=== PATIENT | female | born 1980 | race Caucasian/White ===

== ENCOUNTER 2017-02-13 15:55 | Emergency (ER) | payer OTHER ==
[~2017-02-13] VITALS: Wt 136.1 kg
[~2017-02-13 15:55] MED LIST: AMOXICILLIN500 MG PO; ANTIVERT/2525 MG PO; ANTIVERT25 MG PO; CIPRO250 MG PO; CORTISPORIN SUS10 ML OT; CYMBALTA30 MG PO; DIABETA5 MG PO; Fioricet 325 MG1 TAB PO; GLYBURIDE2.5 MG PO; GLYBURIDE5 MG PO; HUMALOG100 UNIT/2 SQ; HUMULIN R100 U/ML SC; HYDROCODONE BIT1 T11 PO; KEFLEX500 MG PO; LEVEMIR10 ML SC; LEVEMIR10 ML SQ; LEVOFLOXACIN500 MG PO; METFORMIN HCL500 MG PO; METFORMIN500 MG PO; MOTRIN800 MG PO; NEURONTIN300 MG PO; NORCO 10-325 T1 EACH PO; NOVOLOG1 UNIT/0.0; PERCOCET 325 MG1 TA2 PO; PERCOCET 325 MG1 TA5 PO; PHENERGAN25 M1 PO; PRENATAL1 TA3 PO; TRAMADOL HCL50 MG PO; TRAMADOL50 MG PO; VICODIN 5/500 505 MG PO; VICODIN 500 MG-1 TAB PO; VICODIN ES 7501 TAB PO; ZOFRAN ODT4 MG PO; ZOFRAN ODT4 MG SL; ZOFRAN4 MG PO; ZOLOFT25 MG PO; [UNRECOGNIZED DRUG - SUPPLY] SC
[2017-02-13] MEDS ORDERED: AMOXICILLIN500 M2 PO (16:25)
== END 2017-02-13 16:31 | disposition home or self-care (01) ==
LOC: ED 15:55
DX: H66.91 Otitis media, unspecified, right ear (principal); Z79.4 Long term (current) use of insulin; Z90.49 Acquired absence of other specified parts of digestive tract

== ENCOUNTER 2017-04-30 19:33 | Inpatient (IN) | payer OTHER ==
[~2017-04-30] VITALS: Ht 167.6 cm; Wt 135.6 kg
[~2017-04-30 19:33] MED LIST changes: +AMOXICILLIN500 M2 PO
[2017-04-30 19:46] VITALS: BP 144/77
[2017-04-30 20:31] LABS: BASO # 0.1 10*3/uL (0.0-0.1); BASO % 0.3 % (0.0-1.0); EOS # 0.1 10*3/uL (0.0-0.4); EOS % 0.5 % (1.0-4.0); HEMATOCRIT 41.3 % (37.0-47.0); HEMOGLOBIN 13.8 g/dl (12.0-16.0); LYMPH # 2.8 10*3/uL (1.3-4.4); LYMPH % 17.3 % (27.0-41.0); MEAN CELL VOLUME 80.5 fl (81.0-99.0); MEAN CORPUSCULAR HGB 26.9 pg (27.0-31.0); MEAN CORPUSCULAR HGB CONC 33.4 g/dl (33.0-37.0); MEAN PLATELET VOLUME 9.9 fl (9.6-12.3); MONO # 1.5 10*3/uL (0.1-1.0); MONO % 9.2 % (3.0-9.0); NEUT # 11.5 10*3/uL (2.3-7.9); NEUT % 71.6 % (47.0-73.0); PLATELET COUNT AUTOMATED 383 10*3/uL (130-400); RED BLOOD COUNT 5.13 10*6/uL (4.10-5.10); RED CELL DISTRI WIDTH 12.8 % (0-14.5); WHITE BLOOD COUNT 16.1 10*3/uL (4.8-10.8)
[2017-04-30 20:45] LABS: BILIRUBIN NEGATIVE (NEGATIVE); BLOOD NEGATIVE (NEGATIVE); CLARITY CLEAR (CLEAR); COLOR YELLOW (YELLOW); GLUCOSE 3+ (NEGATIVE); KETONE 1+ (NEGATIVE); LEUKO ESTERASE NEGATIVE (NEGATIVE); NITRITE NEGATIVE (NEGATIVE); PH 5.5 (5.0-9.0); SPECIFIC GRAVITY <= 1.005 (1.005-1.030)
[2017-04-30 20:47] LABS: ALBUMIN 2.8 gm/dl (3.1-4.5); ALKALINE PHOSPHATASE 143 U/L (45-117); BUN 10 mg/dl (7-24); CHLORIDE 94 mmol/L (98-107); CREATININE 0.85 mg/dL (0.55-1.02); POTASSIUM 3.9 mmol/L (3.5-5.1); SGOT/AST 14 IU/L (3-35); SGPT/ALT 26 U/L (12-78); SODIUM 132 mmol/L (136-145); TOTAL PROTEIN 8.1 gm/dL (6.4-8.2)
[2017-04-30 20:53] LABS: BACTERIA TRACE; YEAST 1+
[2017-04-30 22:06] VITALS: BP 138/83
--- NOTE | 2017-04-30 23:31 | NUR ---
RIGHT EAR IRRIGATED. PATIENT TOLERATED WELL
[2017-05-01] VITALS (7 sets, daily range): BP systolic 117–148; BP diastolic 68–91
--- NOTE | 2017-05-01 00:45 | NUR ---
A 36, admitted to 5E, under the services of DILAN Carrillo DO with a diagnosis of NAUSEA, VOMITING, DIARRHEA, SOB AND BACK PAIN. Chief complaint is MULTIPLE COMPLAINTS. Patient arrived via bed from ER. Monitor applied. Initial assessment completed. Vital signs taken and recorded. DILAN CARRILLO DO notified of admission to the unit. Orders received. See assessment for past medical history, medications and allergies. Patient and/or family oriented to unit. visitation policy reviewed. Clothing/patient valuable form completed. NAUN PALACIO
--- NOTE | 2017-05-01 01:03 | NUR ---
DR. JUAREZ NOTIFIED OF PATIENT BEING ADMITTED TO THE FLOOR FOR ORDERS AND UNABLE TO VERIFY PATIENT'S MEDICATIONS DUE TO PATIENT NOT SURE WHICH MEDICATIONS SHE IS TAKING AT THIS TIME. WILL HAVE AM NURSE CALL [facility] TO VERIFY MEDICATIONS.
--- NOTE | 2017-05-01 03:51 | NUR ---
PATIENT MEDICATED WITH NORCO AT O[facility] FOR COMPLAINTS OF LEG PAIN. WILL MONITOR FOR EFFECTIVENESS. CALL LIGHT IN REACH.
--- NOTE | 2017-05-01 08:30 | NUR ---
[employer] Teacher in to talk to patient. Patient states lives at HOME with HER . There are 3 steps in the home. Physician: SIMONE [facility] Home health services: NONE Patient's level of ADLs: INDEPENDENT Patient has working utilities: YES DME: NONE Follow-up physician's appointment after d/c: WILL BE MADE PRIOR TO DC Does patient want to access PORTAL?: Discharge plan HOME. DARLIN WARD
--- NOTE | 2017-05-01 17:13 | NUR ---
PATIENT MEDICATED WITH PO NORCO FOR PAIN 7/10 IN HER RIGHT LEG/GROIN
[2017-05-01] MEDS ORDERED: ZOLOFT100 MG PO (17:56)
[2017-05-01] MEDS ORDERED: VISTARIL50 MG PO (17:56)
[2017-05-01] MEDS ORDERED: ZESTRIL2.5 MG PO (17:57)
[2017-05-01] MEDS ORDERED: LANTUS SOL100 UNIT/1 SQ (17:58)
[2017-05-01] MEDS ORDERED: PRAVACHOL40 MG PO (17:59)
[2017-05-01] MEDS ORDERED: HUMALOG100 UNIT/1 SQ ×2 (17:59→18:23)
--- NOTE | 2017-05-01 18:02 | NUR ---
MED[facility] VERIFIED WITH [facility]
--- NOTE | 2017-05-01 18:13 | NUR ---
PATIENT STATES MEDICATION EFFECTIVE
[2017-05-02] VITALS: BP 113/75
--- NOTE | 2017-05-02 04:58 | NUR ---
PATIENT RESTING IN BED WITH EYES CLOSED. AROUSES EASILY TO VERBAL STIMULI. NO SIGNS OR SYMPTOMS OF DISTRESS NOTED. PATIENT STATED SHE FEELS MUCH BETTER TODAY THAN SHE DID LAS NIGHT. WILL CONTINUE TO MONITOR. CALL LIGHT IN REACH.
[2017-05-02 06:58] LABS: ACT PARTIAL THROMBO TIME 28.8 SECONDS (20.8-31.5); HEMATOCRIT 33.9 % (37.0-47.0); HEMOGLOBIN 11.2 g/dl (12.0-16.0); MEAN CELL VOLUME 82.1 fl (81.0-99.0); MEAN CORPUSCULAR HGB 27.1 pg (27.0-31.0); PLATELET COUNT AUTOMATED 318 10*3/uL (130-400); RED BLOOD COUNT 4.13 10*6/uL (4.10-5.10); WHITE BLOOD COUNT 21.7 10*3/uL (4.8-10.8)
[2017-05-02 07:14] LABS: BUN 6 mg/dl (7-24); CHLORIDE 100 mmol/L (98-107); CHOLESTEROL 171 mg/dL (<200); CREATININE 0.62 mg/dL (0.55-1.02); HDL CHOLESTEROL 34 mg/dl (40-60); LDL CHOLESTEROL 109 mg/dL (9-159); POTASSIUM 3.2 mmol/L (3.5-5.1); SODIUM 134 mmol/L (136-145); TRIGLYCERIDES 142 mg/dl (<150); VLDL CHOLESTEROL 28 mg/dL (6-40)
[2017-05-02 07:20] LABS: THYROID STIM HORMONE (HS) 0.969 uIU/ml (0.358-4.75)
[2017-05-02 07:24] LABS: PLATELET SUFFICIENCY NORMAL (NORMAL); TOTAL CELLS COUNTED 100 #CELLS
--- NOTE | 2017-05-02 07:55 | NUR ---
PATIENT COMPLAINING OF RIGHT LEG PAIN RATING A 7/10. NORCO 5/325 GIVEN PER PATIENT REQUEST. PATIENT VOICES NO OTHER COMPLAINTS AT THIS TIME. BED IS IN LOW POSITION. CALL LIGHT WITHIN REACH.
[2017-05-02 08:00] VITALS: BP 152/92
--- NOTE | 2017-05-02 09:56 | NUR ---
Shift chart check completed.
--- NOTE | 2017-05-02 15:41 | NUR ---
ZOFRAN 4MG IV GIVEN FOR NAUSEA AND VOMITING.
[2017-05-02 16:00] VITALS: BP 177/89
--- NOTE | 2017-05-02 16:15 | NUR ---
ZOFRAN EFFECTIVE FOR NAUSEA AND VOMITING PER PATIENT.
[2017-05-03] VITALS: BP 134/83
[2017-05-03 08:00] VITALS: BP 140/72
--- NOTE | 2017-05-03 08:00 | NUR ---
RESTING QUIETLY IN BED, NO DISTRESS NOTED. IV SITE LEAKING. DC'D AND RESTARTED. SEE SHIFT ASSESSMENT.
[2017-05-03 09:02] LABS: HEMATOCRIT 34.6 % (37.0-47.0); HEMOGLOBIN 11.3 g/dl (12.0-16.0); MEAN CELL VOLUME 82.6 fl (81.0-99.0); MEAN CORPUSCULAR HGB CONC 32.7 g/dl (33.0-37.0); MEAN PLATELET VOLUME 9.7 fl (9.6-12.3); PLATELET COUNT AUTOMATED 373 10*3/uL (130-400); RED BLOOD COUNT 4.19 10*6/uL (4.10-5.10); WHITE BLOOD COUNT 18.7 10*3/uL (4.8-10.8)
[2017-05-03 09:23] LABS: BASOPHILS 1 % (0-1); PLATELET SUFFICIENCY NORMAL (NORMAL); TOTAL CELLS COUNTED 100 #CELLS
[2017-05-03 09:25] LABS: ALKALINE PHOSPHATASE 141 U/L (45-117); BUN 5 mg/dl (7-24); CHLORIDE 103 mmol/L (98-107); CREATININE 0.88 mg/dL (0.55-1.02); POTASSIUM 3.3 mmol/L (3.5-5.1); SGOT/AST 32 IU/L (3-35); SGPT/ALT 50 U/L (12-78); SODIUM 139 mmol/L (136-145); TOTAL PROTEIN 6.7 gm/dL (6.4-8.2)
--- NOTE | 2017-05-03 12:56 | NUR ---
PT HAD EMESIS OF CLEAR YELLOW FLUID. MEDICATED ZOFRAN ORDERED.
--- NOTE | 2017-05-03 14:00 | NUR ---
PT STATES ZOFRAN EFFECTIVE.
[2017-05-03 16:00] VITALS: BP 120/78
[2017-05-04] VITALS: BP 136/86
[2017-05-04 06:28] LABS: HEMATOCRIT 32.9 % (37.0-47.0); HEMOGLOBIN 10.7 g/dl (12.0-16.0); MEAN CELL VOLUME 82.9 fl (81.0-99.0); MEAN CORPUSCULAR HGB CONC 32.5 g/dl (33.0-37.0); MEAN PLATELET VOLUME 9.7 fl (9.6-12.3); PLATELET COUNT AUTOMATED 398 10*3/uL (130-400); RED BLOOD COUNT 3.97 10*6/uL (4.10-5.10); WHITE BLOOD COUNT 15.8 10*3/uL (4.8-10.8)
[2017-05-04 06:59] LABS: ALBUMIN 1.9 gm/dl (3.1-4.5); BUN 5 mg/dl (7-24); CHLORIDE 105 mmol/L (98-107); CREATININE 0.91 mg/dL (0.55-1.02); POTASSIUM 3.5 mmol/L (3.5-5.1); SGOT/AST 16 IU/L (3-35); SGPT/ALT 39 U/L (12-78); SODIUM 140 mmol/L (136-145)
[2017-05-04 07:00] LABS: ALKALINE PHOSPHATASE 123 U/L (45-117); TOTAL CELLS COUNTED 100 #CELLS; TOTAL PROTEIN 6.5 gm/dL (6.4-8.2)
[2017-05-04 07:01] LABS: PLATELET SUFFICIENCY NORMAL (NORMAL); POLYCHROMASIA SLIGHT
[2017-05-04 08:00] VITALS: BP 120/90
--- NOTE | 2017-05-04 10:00 | NUR ---
AM MEDS TAKEN.
[2017-05-04] MEDS ORDERED: DOXYCYCLINE100 MG PO (10:55)
[2017-05-04] MEDS ORDERED: SEPTDS PO (10:55)
[2017-05-04] MEDS ORDERED: ZOFRAN4 MG PO (10:56)
--- NOTE | 2017-05-04 12:53 | NUR ---
HEP LOCK REMOVED FOR DISCHARGE. Discharge instructions reviewed with patient/family. Patient receptive and verbalizes understanding. Follow-up care arranged. Written instructions given to patient/family. VIKA SILVA
== END 2017-05-04 12:53 | disposition home or self-care (01) | DRG 872 ==
LOC: ED 19:33 → EDHOLD 22:07 → 5E 22:07
PROVIDERS: Family Medicine Adult Medicine; Internal Medicine; Physician Assistant; ADMIT Emergency Medicine
DX: A41.9 Sepsis, unspecified organism (principal); E44.0 Moderate protein-calorie malnutrition; E11.65 Type 2 diabetes mellitus with hyperglycemia; E87.1 Hypo-osmolality and hyponatremia; L03.115 Cellulitis of right lower limb; L02.415 Cutaneous abscess of right lower limb; Z68.42 Body mass index [BMI] 45.0-49.9, adult; E78.5 Hyperlipidemia, unspecified; G43.909 Migraine, unspecified, not intractable, without status migrainosus; I10 Essential (primary) hypertension; E66.01 Morbid (severe) obesity due to excess calories; I80.9 Phlebitis and thrombophlebitis of unspecified site; K52.9 Noninfective gastroenteritis and colitis, unspecified; M54.9 Dorsalgia, unspecified; Z79.4 Long term (current) use of insulin; Z87.442 Personal history of urinary calculi; Z90.49 Acquired absence of other specified parts of digestive tract; Z83.3 Family history of diabetes mellitus; Z88.8 Allergy status to other drugs, medicaments and biological substances; Z91.14 Patient's other noncompliance with medication regimen; Z82.49 Family history of ischemic heart disease and other diseases of the circulatory system; Z79.899 Other long term (current) drug therapy

== ENCOUNTER 2017-05-07 12:44 | Inpatient (IN) | payer OTHER ==
[2017-05-07] VITALS (7 sets, daily range): BP systolic 150–181; BP diastolic 70–96
[~2017-05-07] VITALS: Ht 165.1 cm; Wt 138.4 kg
[~2017-05-07 12:44] MED LIST changes: +DOXYCYCLINE100 MG PO; +HUMALOG100 UNIT/1 SQ; +LANTUS SOL100 UNIT/1 SQ; +PRAVACHOL40 MG PO; +SEPTDS PO; +VISTARIL50 MG PO; +ZESTRIL2.5 MG PO; +ZOLOFT100 MG PO
[2017-05-07 13:31] LABS: HEMATOCRIT 37.3 % (37.0-47.0); HEMOGLOBIN 12.3 g/dl (12.0-16.0); MEAN CELL VOLUME 81.3 fl (81.0-99.0); MEAN CORPUSCULAR HGB 26.8 pg (27.0-31.0); MEAN PLATELET VOLUME 8.9 fl (9.6-12.3); PLATELET COUNT AUTOMATED 478 10*3/uL (130-400); RED BLOOD COUNT 4.59 10*6/uL (4.10-5.10); WHITE BLOOD COUNT 19.4 10*3/uL (4.8-10.8)
[2017-05-07 13:46] LABS: ALBUMIN 2.6 gm/dl (3.1-4.5); CREATININE 1.28 mg/dL (0.55-1.02); MAGNESIUM 1.7 mg/dL (1.5-2.1); POTASSIUM 3.5 mmol/L (3.5-5.1); TOTAL PROTEIN 7.8 gm/dL (6.4-8.2)
[2017-05-07 13:48] LABS: BASOPHILS 1 % (0-1); PLATELET SUFFICIENCY HIGH (NORMAL); TOTAL CELLS COUNTED 100 #CELLS
[2017-05-07 14:14] LABS: BILIRUBIN NEGATIVE (NEGATIVE); BLOOD NEGATIVE (NEGATIVE); CLARITY CLEAR (CLEAR); COLOR YELLOW (YELLOW); GLUCOSE NEGATIVE (NEGATIVE); KETONE 1+ (NEGATIVE); LEUKO ESTERASE NEGATIVE (NEGATIVE); NITRITE NEGATIVE (NEGATIVE); PH 7.5 (5.0-9.0); SPECIFIC GRAVITY <= 1.005 (1.005-1.030)
[2017-05-07 14:21] LABS: BACTERIA TRACE; RBC 0-2 rbc/hpf (0-2); WBC 0-2 wbc/hpf (0-5); YEAST 1+
--- NOTE | 2017-05-07 14:45 | NUR ---
A 36, admitted to , under the services of JACQUELINE Schreiber DO with a diagnosis of ACUTE RENAL INSUFFIENCY, HYPERGLYCEMIA, INTRACTABLE NV. Chief complaint is NV. Patient arrived via bed from ER. Monitor applied. Initial assessment completed. Vital signs taken and recorded. JACQUELINE SCHREIBER DO notified of admission to the unit. Orders received. See assessment for past medical history, medications and allergies. Patient and/or family oriented to unit. [facility] visitation policy reviewed. Clothing/patient valuable form completed. URI BLAKE
--- NOTE | 2017-05-07 14:52 | NUR ---
[facility] CALL[facility] FOR MED REC. WILL FAX TO 5E.
--- NOTE | 2017-05-07 15:03 | NUR ---
MUKUND WINSLOW TOOK THE PATIENT UP STAIRS TO ROOM. JOSE OMALLEY
[2017-05-07] MEDS ORDERED: VITAMIN D50000 UNIT PO (15:20)
[2017-05-08] VITALS: BP 170/94
--- NOTE | 2017-05-08 00:05 | NUR ---
NOTIFIED DR. SHAIKH OF PATIENT'S BLOOD PRESSURE OF 170/94. NO NEW ORDERS.
--- NOTE | 2017-05-08 04:37 | NUR ---
PATIENT RESTING IN BED WITH EYES CLOSED. AROUSES EASILY TO VERBAL STIMULI. DENIES COMPLAINTS OF PAIN OR DISCOMFORT. STATED SHE SLEPT WELL THROUGH THE NIGHT. WILL CONTINUE TO MONITOR. CALL LIGHT IN REACH.
[2017-05-08 07:56] LABS: BASO # 0.1 10*3/uL (0.0-0.1); BASO % 0.5 % (0.0-1.0); EOS # 0.2 10*3/uL (0.0-0.4); EOS % 1.2 % (1.0-4.0); HEMATOCRIT 34.3 % (37.0-47.0); LYMPH # 2.9 10*3/uL (1.3-4.4); LYMPH % 16.6 % (27.0-41.0); MEAN CELL VOLUME 82.9 fl (81.0-99.0); MEAN CORPUSCULAR HGB 26.6 pg (27.0-31.0); MEAN CORPUSCULAR HGB CONC 32.1 g/dl (33.0-37.0); MONO % 5.9 % (3.0-9.0); NEUT # 12.9 10*3/uL (2.3-7.9); NEUT % 74.8 % (47.0-73.0); PLATELET COUNT AUTOMATED 377 10*3/uL (130-400); RED BLOOD COUNT 4.14 10*6/uL (4.10-5.10); RED CELL DISTRI WIDTH 13.2 % (0-14.5); WHITE BLOOD COUNT 17.2 10*3/uL (4.8-10.8)
[2017-05-08 08:00] VITALS: BP 158/98
--- NOTE | 2017-05-08 08:00 | NUR ---
Manager Distribution Center in to talk to patient. Patient states lives at HOME with HER . There are 3 steps in the home. Physician: SIMONE [facility] Home health services: NONE Patient's level of ADLs: INDEPENDENT Patient has working utilities: YES DME: NONE Follow-up physician's appointment after d/c: WILL BE MAD EPRIOR TO DC Does patient want to access PORTAL?: Discharge plan HOME. DARLIN WARD
--- NOTE | 2017-05-08 08:28 | NUR ---
PATIENT HAD A LARGE YELLOW EMESIS OF 300CC. NO C/O ABDOMINAL PAIN. MEDICATED WITH PHENERGAN PER PRN ORDER. WILL CONTINUE TO MONITOR.
[2017-05-08 08:46] LABS: ALBUMIN 2.2 gm/dl (3.1-4.5); ALKALINE PHOSPHATASE 94 U/L (45-117); BUN 7 mg/dl (7-24); CHLORIDE 104 mmol/L (98-107); CREATININE 1.13 mg/dL (0.55-1.02); MAGNESIUM 1.7 mg/dL (1.5-2.1); POTASSIUM 3.4 mmol/L (3.5-5.1); SGOT/AST 27 IU/L (3-35); SGPT/ALT 44 U/L (12-78); SODIUM 139 mmol/L (136-145); TOTAL PROTEIN 6.5 gm/dL (6.4-8.2)
[2017-05-08 12:00] VITALS: BP 160/89
[2017-05-08 16:00] VITALS: BP 156/70
[2017-05-08 20:00] VITALS: BP 158/82
[2017-05-09] VITALS: BP 156/82
--- NOTE | 2017-05-09 01:20 | NUR ---
PATIENT RESTING IN BED WITH EYES CLOSED. AROUSES TO VERBAL STIMULI. NO SIGNS OR SYMPTOMS OF DISTRESS NOTED AT THIS TIME. PATIENT WAS HAVING DRY HEAVES EARLIER IN SHIFT. MEDICATED WITH ZOFRAN AT 0000. WILL CONTINUE TO MONITOR. CALL LIGHT IN REACH.
[2017-05-09 06:58] LABS: BASO # 0.1 10*3/uL (0.0-0.1); BASO % 0.6 % (0.0-1.0); EOS # 0.2 10*3/uL (0.0-0.4); EOS % 1.1 % (1.0-4.0); HEMATOCRIT 36.1 % (37.0-47.0); HEMOGLOBIN 11.7 g/dl (12.0-16.0); LYMPH # 2.7 10*3/uL (1.3-4.4); LYMPH % 16.8 % (27.0-41.0); MEAN CELL VOLUME 83.2 fl (81.0-99.0); MEAN CORPUSCULAR HGB CONC 32.4 g/dl (33.0-37.0); MEAN PLATELET VOLUME 8.8 fl (9.6-12.3); MONO # 0.9 10*3/uL (0.1-1.0); MONO % 5.9 % (3.0-9.0); NEUT # 11.7 10*3/uL (2.3-7.9); NEUT % 74.4 % (47.0-73.0); PLATELET COUNT AUTOMATED 394 10*3/uL (130-400); RED BLOOD COUNT 4.34 10*6/uL (4.10-5.10); RED CELL DISTRI WIDTH 12.9 % (0-14.5); WHITE BLOOD COUNT 15.7 10*3/uL (4.8-10.8)
[2017-05-09 07:29] LABS: ALBUMIN 2.5 gm/dl (3.1-4.5); BUN 8 mg/dl (7-24); CHLORIDE 102 mmol/L (98-107); CREATININE 1.18 mg/dL (0.55-1.02); PHOSPHOROUS 3.5 mg/dL (2.5-4.9); POTASSIUM 3.7 mmol/L (3.5-5.1); SGOT/AST 26 IU/L (3-35); SGPT/ALT 48 U/L (12-78); SODIUM 139 mmol/L (136-145)
[2017-05-09 07:30] LABS: ALKALINE PHOSPHATASE 107 U/L (45-117); MAGNESIUM 1.6 mg/dL (1.5-2.1)
[2017-05-09 08:00] VITALS: BP 182/97
--- NOTE | 2017-05-09 09:01 | NUR ---
PT MEDICATED WITH PHENERGAN FOR C/O NV. WILL MONITOR
[2017-05-09 10:00] VITALS: BP 166/98
--- NOTE | 2017-05-09 10:00 | NUR ---
PT STATES THAT PHENERGAN HELPED. WILL MONITOR
--- NOTE | 2017-05-09 10:06 | NUR ---
PT BP RECHECKED DR IVORY CALLED AND NOTIFIED
[2017-05-09 12:00] VITALS: BP 153/82
[2017-05-09 16:00] VITALS: BP 150/81
--- NOTE | 2017-05-09 16:54 | NUR ---
PT REQUESTED AND GIVEN ZOFRAN FOR C/O NAUSEA. WILL MONITOR
[2017-05-09 20:00] VITALS: BP 159/84
--- NOTE | 2017-05-09 20:15 | NUR ---
PATIENT RESTING QUIETLY IN BED. NO VOICED C/O AT THIS TIME. SHE IS PLEASANT/COOPERATIVE WITH CARE. RESPIRATIONS EASY/REG. CALL LIGHT IN REACH.
[2017-05-10] VITALS: BP 150/93
--- NOTE | 2017-05-10 00:50 | NUR ---
MEDICATED WITH ZOFRAN FOR C/O NAUSEA.
--- NOTE | 2017-05-10 02:00 | NUR ---
EARLIER ZOFRAN EFFECTIVE PER PATIENT
--- NOTE | 2017-05-10 04:16 | NUR ---
SLEEPING, NO SXS OF DISTRESS. RESPIRATIONS EASY/REG. CALL LIGHT IN REACH
[2017-05-10 06:07] LABS: BASO # 0.1 10*3/uL (0.0-0.1); BASO % 0.4 % (0.0-1.0); EOS # 0.2 10*3/uL (0.0-0.4); EOS % 1.4 % (1.0-4.0); HEMOGLOBIN 11.1 g/dl (12.0-16.0); LYMPH # 3.3 10*3/uL (1.3-4.4); LYMPH % 20.9 % (27.0-41.0); MEAN CELL VOLUME 80.6 fl (81.0-99.0); MEAN CORPUSCULAR HGB 26.3 pg (27.0-31.0); MEAN CORPUSCULAR HGB CONC 32.6 g/dl (33.0-37.0); MEAN PLATELET VOLUME 8.9 fl (9.6-12.3); MONO # 1.1 10*3/uL (0.1-1.0); MONO % 6.9 % (3.0-9.0); NEUT # 10.9 10*3/uL (2.3-7.9); NEUT % 69.4 % (47.0-73.0); PLATELET COUNT AUTOMATED 399 10*3/uL (130-400); RED BLOOD COUNT 4.22 10*6/uL (4.10-5.10); WHITE BLOOD COUNT 15.6 10*3/uL (4.8-10.8)
[2017-05-10 06:10] LABS: ALBUMIN 2.3 gm/dl (3.1-4.5); ALKALINE PHOSPHATASE 92 U/L (45-117); BUN 8 mg/dl (7-24); CHLORIDE 100 mmol/L (98-107); CREATININE 1.07 mg/dL (0.55-1.02); POTASSIUM 3.3 mmol/L (3.5-5.1); SGOT/AST 14 IU/L (3-35); SGPT/ALT 35 U/L (12-78); SODIUM 137 mmol/L (136-145); TOTAL PROTEIN 6.4 gm/dL (6.4-8.2)
[2017-05-10 08:00] VITALS: BP 138/73
--- NOTE | 2017-05-10 09:10 | NUR ---
PT C/O N/V. PT MEDICATED WITH IV ZOFRAN ORDERED / CALL LIGHT WITHIN REACH . WILL MONITOR
--- NOTE | 2017-05-10 10:30 | NUR ---
ZOFRAN EFFECTIVE PER PT. WILL CONT TO MONITOR
[2017-05-10] MEDS ORDERED: CIPRO500 MG PO (10:56)
[2017-05-10] MEDS ORDERED: FLAGYL500 MG PO (10:56)
[2017-05-10 12:00] VITALS: BP 140/72
--- NOTE | 2017-05-10 13:40 | NUR ---
Discharge instructions reviewed with patient/family. Patient receptive and verbalizes understanding. Follow-up care arranged. Written instructions given to patient/family. JOSE POTTS
--- NOTE | 2017-05-10 14:11 | NUR ---
DR IVORY STATES THAT PT CAN TAKE HER DOSE OF LISINOPRIL FROM HOME. PT MOM ( DEONDRE ) CALLED AND NOTIFIED
== END 2017-05-10 14:14 | disposition home or self-care (01) | DRG 871 ==
LOC: ED 12:44 → 5E 14:20 → EDHOLD 14:20 → 5E 14:27
PROVIDERS: Hospitalist; Nurse Practitioner Family; ADMIT Internal Medicine
DX: A41.9 Sepsis, unspecified organism (principal); N17.0 Acute kidney failure with tubular necrosis; E43 Unspecified severe protein-calorie malnutrition; K74.60 Unspecified cirrhosis of liver; E86.0 Dehydration; Z68.43 Body mass index [BMI] 50.0-59.9, adult; K76.0 Fatty (change of) liver, not elsewhere classified; K52.9 Noninfective gastroenteritis and colitis, unspecified; E66.01 Morbid (severe) obesity due to excess calories; I10 Essential (primary) hypertension; E78.5 Hyperlipidemia, unspecified; G43.909 Migraine, unspecified, not intractable, without status migrainosus; E11.65 Type 2 diabetes mellitus with hyperglycemia; E55.9 Vitamin D deficiency, unspecified; Z79.899 Other long term (current) drug therapy; Z90.49 Acquired absence of other specified parts of digestive tract; Z82.49 Family history of ischemic heart disease and other diseases of the circulatory system; Z83.3 Family history of diabetes mellitus; Z71.3 Dietary counseling and surveillance

== ENCOUNTER 2017-09-30 04:33 | Emergency (ER) | payer SELFPAY ==
[~2017-09-30] VITALS: Ht 172.7 cm; Wt 108.9 kg
[~2017-09-30 04:33] MED LIST changes: +CIPRO500 MG PO; +FLAGYL500 MG PO; +VITAMIN D50000 UNIT PO
[2017-09-30 04:51] LABS: BASO # 0.1 10*3/uL (0.0-0.1); BASO % 0.6 % (0.0-1.0); EOS # 0.2 10*3/uL (0.0-0.4); EOS % 1.1 % (1.0-4.0); HEMATOCRIT 41.6 % (37.0-47.0); LYMPH # 4.3 10*3/uL (1.3-4.4); LYMPH % 32.6 % (27.0-41.0); MEAN CELL VOLUME 79.8 fl (81.0-99.0); MEAN CORPUSCULAR HGB 26.9 pg (27.0-31.0); MEAN CORPUSCULAR HGB CONC 33.7 g/dl (33.0-37.0); MEAN PLATELET VOLUME 10.4 fl (9.6-12.3); MONO # 0.9 10*3/uL (0.1-1.0); MONO % 6.6 % (3.0-9.0); NEUT # 7.7 10*3/uL (2.3-7.9); NEUT % 58.6 % (47.0-73.0); PLATELET COUNT AUTOMATED 374 10*3/uL (130-400); RED BLOOD COUNT 5.21 10*6/uL (4.10-5.10); RED CELL DISTRI WIDTH 12.8 % (0-14.5); WHITE BLOOD COUNT 13.2 10*3/uL (4.8-10.8)
[2017-09-30 05:22] LABS: ACT PARTIAL THROMBO TIME 21.9 SECONDS (20.8-31.5); INTERNATIONAL NORM RATIO 0.9 (2.0-3.5)
[2017-09-30 05:29] LABS: ALBUMIN 3.3 gm/dl (3.1-4.5); ALKALINE PHOSPHATASE 124 U/L (45-117); BUN 15 mg/dl (7-24); CHLORIDE 95 mmol/L (98-107); CREATININE 0.96 mg/dL (0.55-1.02); SGOT/AST 14 IU/L (3-35); SGPT/ALT 21 U/L (12-78); SODIUM 132 mmol/L (136-145); TOTAL PROTEIN 7.6 gm/dL (6.4-8.2)
[2017-09-30 05:30] LABS: TROPONIN I < 0.015 ng/ml (<0.045)
== END 2017-09-30 06:12 | disposition home or self-care (01) ==
LOC: ED 04:33
PROVIDERS: Student in an Organized Health Care Education/Training Program
DX: R07.89 Other chest pain (principal); I10 Essential (primary) hypertension; E78.5 Hyperlipidemia, unspecified; G43.909 Migraine, unspecified, not intractable, without status migrainosus; E11.65 Type 2 diabetes mellitus with hyperglycemia; Z68.42 Body mass index [BMI] 45.0-49.9, adult; Z90.49 Acquired absence of other specified parts of digestive tract; Z98.890 Other specified postprocedural states; Z79.899 Other long term (current) drug therapy; Z79.4 Long term (current) use of insulin

== ENCOUNTER 2017-10-27 16:35 | Inpatient (IN) | payer SELFPAY ==
[~2017-10-27] VITALS: Ht 165.1 cm; Wt 131.3 kg
[2017-10-27 16:35] VITALS: BP 155/96
[2017-10-27 17:12] LABS: BILIRUBIN NEGATIVE (NEGATIVE); BLOOD NEGATIVE (NEGATIVE); CLARITY SL CLOUDY (CLEAR); COLOR YELLOW (YELLOW); GLUCOSE 3+ (NEGATIVE); KETONE NEGATIVE (NEGATIVE); LEUKO ESTERASE NEGATIVE (NEGATIVE); NITRITE NEGATIVE (NEGATIVE)
[2017-10-27 17:28] LABS: RBC 0-2 rbc/hpf (0-2)
[2017-10-27 17:29] LABS: BACTERIA 2+; EPITHELIAL CELLS 16-20
[2017-10-27 17:43] LABS: BASO % 0.4 % (0.0-1.0); EOS # 0.1 10*3/uL (0.0-0.4); EOS % 1.2 % (1.0-4.0); HEMATOCRIT 37.4 % (37.0-47.0); HEMOGLOBIN 12.3 g/dl (12.0-16.0); LYMPH # 2.7 10*3/uL (1.3-4.4); LYMPH % 26.1 % (27.0-41.0); MEAN CELL VOLUME 81.1 fl (81.0-99.0); MEAN CORPUSCULAR HGB 26.7 pg (27.0-31.0); MEAN CORPUSCULAR HGB CONC 32.9 g/dl (33.0-37.0); MEAN PLATELET VOLUME 9.8 fl (9.6-12.3); MONO # 0.9 10*3/uL (0.1-1.0); MONO % 8.6 % (3.0-9.0); NEUT # 6.5 10*3/uL (2.3-7.9); PLATELET COUNT AUTOMATED 353 10*3/uL (130-400); RED BLOOD COUNT 4.61 10*6/uL (4.10-5.10); RED CELL DISTRI WIDTH 12.8 % (0-14.5); WHITE BLOOD COUNT 10.3 10*3/uL (4.8-10.8)
[2017-10-27 17:45] VITALS: BP 160/91
[2017-10-27 17:58] LABS: ALKALINE PHOSPHATASE 109 U/L (45-117); BUN 14 mg/dl (7-24); CHLORIDE 96 mmol/L (98-107); CREATININE 1.09 mg/dL (0.55-1.02); SGOT/AST 15 IU/L (3-35); SGPT/ALT 21 U/L (12-78); SODIUM 133 mmol/L (136-145); TOTAL PROTEIN 7.5 gm/dL (6.4-8.2)
[2017-10-27 19:13] VITALS: BP 138/88
[2017-10-27 19:31] VITALS: BP 160/91
[2017-10-27] MEDS ORDERED: NEURONTIN300 MG PO (19:59)
[2017-10-27 20:11] LABS: BUN 14 mg/dl (7-24); CHLORIDE 101 mmol/L (98-107); CREATININE 0.98 mg/dL (0.55-1.02); POTASSIUM 3.6 mmol/L (3.5-5.1); SODIUM 138 mmol/L (136-145)
[2017-10-27 20:16] LABS: TROPONIN I < 0.015 ng/ml (<0.045)
[2017-10-27 21:01] LABS: ABG BASE EXCESS 0.7 mmol/L (-2.0-2.0); ABG HCO3 24.3 mmol/l (22-26); ABG O2 SATURATION 97.4 % (95-97); ARTERIAL BLOOD GAS PH 7.433 (7.35-7.45); ARTERIAL BLOOD GAS PO2 83.2 mmHg (80-90)
[2017-10-28] VITALS: BP 130/77
[2017-10-28 06:10] LABS: BASO % 0.4 % (0.0-1.0); EOS # 0.2 10*3/uL (0.0-0.4); EOS % 1.6 % (1.0-4.0); HEMATOCRIT 32.7 % (37.0-47.0); HEMOGLOBIN 10.6 g/dl (12.0-16.0); LYMPH # 3.5 10*3/uL (1.3-4.4); MEAN CELL VOLUME 82.2 fl (81.0-99.0); MEAN CORPUSCULAR HGB 26.6 pg (27.0-31.0); MEAN CORPUSCULAR HGB CONC 32.4 g/dl (33.0-37.0); MEAN PLATELET VOLUME 10.1 fl (9.6-12.3); MONO # 0.9 10*3/uL (0.1-1.0); MONO % 9.2 % (3.0-9.0); NEUT # 4.8 10*3/uL (2.3-7.9); NEUT % 51.3 % (47.0-73.0); PLATELET COUNT AUTOMATED 300 10*3/uL (130-400); RED BLOOD COUNT 3.98 10*6/uL (4.10-5.10); RED CELL DISTRI WIDTH 13.1 % (0-14.5); WHITE BLOOD COUNT 9.4 10*3/uL (4.8-10.8)
[2017-10-28 06:15] LABS: ALBUMIN 2.3 gm/dl (3.1-4.5); BUN 12 mg/dl (7-24); CHLORIDE 104 mmol/L (98-107); CHOLESTEROL 154 mg/dL (<200); CREATININE 0.75 mg/dL (0.55-1.02); PHOSPHOROUS 3.5 mg/dL (2.5-4.9); POTASSIUM 3.4 mmol/L (3.5-5.1); SGOT/AST 10 IU/L (3-35); SGPT/ALT 20 U/L (12-78); SODIUM 138 mmol/L (136-145); TOTAL PROTEIN 6.1 gm/dL (6.4-8.2); TRIGLYCERIDES 150 mg/dl (<150); VLDL CHOLESTEROL 30 mg/dL (6-40)
[2017-10-28 06:21] LABS: ALKALINE PHOSPHATASE 87 U/L (45-117); HDL CHOLESTEROL 34 mg/dl (40-60); LDL CHOLESTEROL 90 mg/dL (9-159)
[2017-10-28 06:29] LABS: ACT PARTIAL THROMBO TIME 25.9 SECONDS (20.8-31.5); INTERNATIONAL NORM RATIO 0.9 (2.0-3.5)
[2017-10-28 08:00] VITALS: BP 97/61
[2017-10-28 08:14] LABS: VITAMIN D, 25-HYDROXY 17.8 ng/mL (30-100)
[2017-10-28 11:55] VITALS: BP 103/68
[2017-10-28 16:00] VITALS: BP 101/62
[2017-10-28 20:00] VITALS: BP 129/75
[2017-10-29] VITALS: BP 109/84
[2017-10-29 06:15] LABS: BASO # 0.1 10*3/uL (0.0-0.1); BASO % 0.6 % (0.0-1.0); EOS # 0.2 10*3/uL (0.0-0.4); HEMATOCRIT 34.1 % (37.0-47.0); HEMOGLOBIN 11.1 g/dl (12.0-16.0); LYMPH # 3.8 10*3/uL (1.3-4.4); LYMPH % 36.2 % (27.0-41.0); MEAN CORPUSCULAR HGB 26.7 pg (27.0-31.0); MEAN CORPUSCULAR HGB CONC 32.6 g/dl (33.0-37.0); MONO # 0.7 10*3/uL (0.1-1.0); NEUT # 5.6 10*3/uL (2.3-7.9); NEUT % 53.6 % (47.0-73.0); PLATELET COUNT AUTOMATED 356 10*3/uL (130-400); RED BLOOD COUNT 4.16 10*6/uL (4.10-5.10); WHITE BLOOD COUNT 10.5 10*3/uL (4.8-10.8)
[2017-10-29 06:24] LABS: BUN 14 mg/dl (7-24); CHLORIDE 103 mmol/L (98-107); CREATININE 0.77 mg/dL (0.55-1.02); POTASSIUM 3.8 mmol/L (3.5-5.1); SODIUM 137 mmol/L (136-145)
[2017-10-29 08:00] VITALS: BP 130/84
[2017-10-29 12:00] VITALS: BP 140/78
[2017-10-29] MEDS ORDERED: LISINOPRIL5 MG PO (15:17)
[2017-10-29] MEDS ORDERED: SEPTDS PO (15:17)
[2017-10-29] MEDS ORDERED: CEPHALEXIN500 M1 PO (15:17)
[2017-10-29 16:00] VITALS: BP 133/74
== END 2017-10-29 16:30 | disposition home or self-care (01) | DRG 872 ==
LOC: ED 16:35 → 4E 18:26 → EDHOLD 18:26 → 4E 19:05
PROVIDERS: Internal Medicine; Obstetrics & Gynecology; Physician Assistant
DX: A41.9 Sepsis, unspecified organism (principal); E11.42 Type 2 diabetes mellitus with diabetic polyneuropathy; E87.2 Acidosis; E44.0 Moderate protein-calorie malnutrition; E87.8 Other disorders of electrolyte and fluid balance, not elsewhere classified; E11.65 Type 2 diabetes mellitus with hyperglycemia; L03.115 Cellulitis of right lower limb; Z68.42 Body mass index [BMI] 45.0-49.9, adult; E66.01 Morbid (severe) obesity due to excess calories; K74.60 Unspecified cirrhosis of liver; K76.0 Fatty (change of) liver, not elsewhere classified; E78.5 Hyperlipidemia, unspecified; E86.0 Dehydration; R65.20 Severe sepsis without septic shock; R81 Glycosuria; R82.71 Bacteriuria; G43.909 Migraine, unspecified, not intractable, without status migrainosus; I10 Essential (primary) hypertension; E55.9 Vitamin D deficiency, unspecified; F41.9 Anxiety disorder, unspecified; F32.9 Major depressive disorder, single episode, unspecified; Z79.4 Long term (current) use of insulin; Z79.899 Other long term (current) drug therapy; Z90.49 Acquired absence of other specified parts of digestive tract; Z82.49 Family history of ischemic heart disease and other diseases of the circulatory system; Z83.3 Family history of diabetes mellitus

== ENCOUNTER 2017-12-01 18:27 | Inpatient (IN) | payer SELFPAY ==
[~2017-12-01] VITALS: Ht 165.1 cm; Wt 136.2 kg
[~2017-12-01 18:27] MED LIST changes: +CEPHALEXIN500 M1 PO; +LISINOPRIL5 MG PO
[2017-12-01 18:47] VITALS: BP 140/82
[2017-12-01 19:00] VITALS: BP 140/82
[2017-12-01 19:47] LABS: HEMATOCRIT 36.9 % (37.0-47.0); HEMOGLOBIN 12.6 g/dl (12.0-16.0); MEAN CELL VOLUME 78.7 fl (81.0-99.0); MEAN CORPUSCULAR HGB 26.9 pg (27.0-31.0); MEAN CORPUSCULAR HGB CONC 34.1 g/dl (33.0-37.0); MEAN PLATELET VOLUME 9.8 fl (9.6-12.3); PLATELET COUNT AUTOMATED 355 10*3/uL (130-400); RED BLOOD COUNT 4.69 10*6/uL (4.10-5.10); RED CELL DISTRI WIDTH 13.1 % (0-14.5)
[2017-12-01 20:06] LABS: ALBUMIN 3.3 gm/dl (3.1-4.5); ALKALINE PHOSPHATASE 121 U/L (45-117); BUN 13 mg/dl (7-24); CHLORIDE 96 mmol/L (98-107); CREATININE 1.01 mg/dL (0.55-1.02); SGOT/AST 15 IU/L (3-35); SGPT/ALT 22 U/L (12-78); SODIUM 131 mmol/L (136-145); TOTAL PROTEIN 7.6 gm/dL (6.4-8.2)
[2017-12-01 20:07] LABS: BILIRUBIN NEGATIVE (NEGATIVE); BLOOD 1+ (NEGATIVE); CLARITY CLEAR (CLEAR); COLOR YELLOW (YELLOW); GLUCOSE 3+ (NEGATIVE); KETONE 1+ (NEGATIVE); LEUKO ESTERASE NEGATIVE (NEGATIVE); NITRITE NEGATIVE (NEGATIVE); PH 7.5 (5.0-9.0); SPECIFIC GRAVITY 1.015 (1.005-1.030)
[2017-12-01 20:10] LABS: MICROCYTOSIS SLIGHT; PLATELET SUFFICIENCY NORMAL (NORMAL); TOTAL CELLS COUNTED 100 #CELLS
[2017-12-01 20:28] LABS: BACTERIA TRACE; EPITHELIAL CELLS 45-50; WBC 0-2 wbc/hpf (0-5); YEAST TRACE
[2017-12-01 21:00] VITALS: BP 136/70
[2017-12-01 22:07] VITALS: BP 121/65
[2017-12-01 22:45] VITALS: BP 105/47
[2017-12-01 23:05] VITALS: BP 122/49
[2017-12-02 05:48] LABS: ALBUMIN 2.7 gm/dl (3.1-4.5); ALKALINE PHOSPHATASE 101 U/L (45-117); BUN 12 mg/dl (7-24); CHLORIDE 100 mmol/L (98-107); CREATININE 0.93 mg/dL (0.55-1.02); PHOSPHOROUS 2.5 mg/dL (2.5-4.9); POTASSIUM 3.8 mmol/L (3.5-5.1); SGOT/AST 11 IU/L (3-35); SGPT/ALT 22 U/L (12-78); SODIUM 135 mmol/L (136-145); TOTAL PROTEIN 6.6 gm/dL (6.4-8.2)
[2017-12-02 05:54] LABS: THYROID STIM HORMONE (HS) 0.985 uIU/ml (0.358-4.75)
[2017-12-02 05:55] LABS: HEMATOCRIT 35.1 % (37.0-47.0); HEMOGLOBIN 11.5 g/dl (12.0-16.0); MEAN CELL VOLUME 81.1 fl (81.0-99.0); MEAN CORPUSCULAR HGB 26.6 pg (27.0-31.0); MEAN CORPUSCULAR HGB CONC 32.8 g/dl (33.0-37.0); MEAN PLATELET VOLUME 10.5 fl (9.6-12.3); PLATELET COUNT AUTOMATED 354 10*3/uL (130-400); RED BLOOD COUNT 4.33 10*6/uL (4.10-5.10); RED CELL DISTRI WIDTH 13.1 % (0-14.5); WHITE BLOOD COUNT 30.6 10*3/uL (4.8-10.8)
[2017-12-02 07:02] LABS: PLATELET SUFFICIENCY NORMAL (NORMAL); TOTAL CELLS COUNTED 100 #CELLS
[2017-12-02 08:00] VITALS: BP 107/56
[2017-12-02 12:00] VITALS: BP 124/83
[2017-12-02 16:00] VITALS: BP 111/60
[2017-12-02 20:00] VITALS: BP 99/56
[2017-12-03] VITALS: BP 119/76
[2017-12-03 05:29] LABS: BUN 12 mg/dl (7-24); CHLORIDE 103 mmol/L (98-107); CREATININE 0.89 mg/dL (0.55-1.02); POTASSIUM 3.7 mmol/L (3.5-5.1); SODIUM 136 mmol/L (136-145)
[2017-12-03 06:34] LABS: BASO # 0.1 10*3/uL (0.0-0.1); BASO % 0.3 % (0.0-1.0); EOS # 0.2 10*3/uL (0.0-0.4); EOS % 1.1 % (1.0-4.0); HEMATOCRIT 33.2 % (37.0-47.0); HEMOGLOBIN 10.7 g/dl (12.0-16.0); LYMPH # 2.7 10*3/uL (1.3-4.4); LYMPH % 17.8 % (27.0-41.0); MEAN CORPUSCULAR HGB 26.8 pg (27.0-31.0); MEAN CORPUSCULAR HGB CONC 32.2 g/dl (33.0-37.0); MEAN PLATELET VOLUME 10.4 fl (9.6-12.3); MONO # 1.2 10*3/uL (0.1-1.0); MONO % 7.9 % (3.0-9.0); NEUT # 10.8 10*3/uL (2.3-7.9); NEUT % 72.2 % (47.0-73.0); PLATELET COUNT AUTOMATED 331 10*3/uL (130-400); RED CELL DISTRI WIDTH 13.2 % (0-14.5)
[2017-12-03 08:00] VITALS: BP 112/67
[2017-12-03] MEDS ORDERED: KEFLEX500 M1 PO (11:31)
[2017-12-03 12:00] VITALS: BP 121/81
== END 2017-12-03 13:10 | disposition home or self-care (01) | DRG 871 ==
LOC: ED 18:27 → 4E 22:10 → EDHOLD 22:10 → 4E 22:47
PROVIDERS: Family Medicine; Nurse Practitioner
DX: A41.9 Sepsis, unspecified organism (principal); E43 Unspecified severe protein-calorie malnutrition; E11.42 Type 2 diabetes mellitus with diabetic polyneuropathy; E87.1 Hypo-osmolality and hyponatremia; L03.115 Cellulitis of right lower limb; N39.0 Urinary tract infection, site not specified; Z68.42 Body mass index [BMI] 45.0-49.9, adult; E87.8 Other disorders of electrolyte and fluid balance, not elsewhere classified; E11.65 Type 2 diabetes mellitus with hyperglycemia; K76.0 Fatty (change of) liver, not elsewhere classified; M54.5 Low back pain; R82.71 Bacteriuria; R81 Glycosuria; G43.909 Migraine, unspecified, not intractable, without status migrainosus; I10 Essential (primary) hypertension; E78.5 Hyperlipidemia, unspecified; E66.01 Morbid (severe) obesity due to excess calories; F41.9 Anxiety disorder, unspecified; K74.60 Unspecified cirrhosis of liver; F32.9 Major depressive disorder, single episode, unspecified; Z90.49 Acquired absence of other specified parts of digestive tract; Z79.4 Long term (current) use of insulin; Z79.899 Other long term (current) drug therapy; Z82.49 Family history of ischemic heart disease and other diseases of the circulatory system; Z83.3 Family history of diabetes mellitus

== ENCOUNTER 2018-03-30 22:51 | Emergency (ER) | payer SELFPAY ==
[~2018-03-30] VITALS: Ht 165.1 cm; Wt 131.5 kg
[~2018-03-30 22:51] MED LIST changes: +DOXYCYCLINE100 M3 PO; +Humalog SQ; +KEFLEX500 M1 PO; +VITAMIN D-32000 UNIT PO; +ZYVOX600 MG PO
[2018-03-30 23:36] LABS: BILIRUBIN NEGATIVE (NEGATIVE); BLOOD NEGATIVE (NEGATIVE); CLARITY SL CLOUDY (CLEAR); COLOR YELLOW (YELLOW); GLUCOSE NEGATIVE (NEGATIVE); KETONE TRACE (NEGATIVE); LEUKO ESTERASE TRACE (NEGATIVE); NITRITE NEGATIVE (NEGATIVE); SPECIFIC GRAVITY <= 1.005 (1.005-1.030); UROBILINOGEN 0.2 E.U./dl (0.2-1.0)
[2018-03-30 23:47] LABS: EPITHELIAL CELLS 40-45
[2018-03-31] MEDS ORDERED: Motrin,Rufen800 MG PO (00:19)
[2018-03-31] MEDS ORDERED: ROBAXIN500 M1 PO (00:19)
== END 2018-03-31 00:53 | disposition home or self-care (01) ==
LOC: ED 22:51
PROVIDERS: Nurse Practitioner Family
DX: S39.012A Strain of muscle, fascia and tendon of lower back, initial encounter (principal); R30.0 Dysuria; Z88.8 Allergy status to other drugs, medicaments and biological substances; Z79.899 Other long term (current) drug therapy; X58.XXXA Exposure to other specified factors, initial encounter; Y93.89 Activity, other specified; Y92.89 Other specified places as the place of occurrence of the external cause; Y99.8 Other external cause status

== ENCOUNTER → 2018-04-29 | Outpatient (CLI) | payer SELFPAY ==
[~2018-04-29] MED LIST changes: +Motrin,Rufen800 MG PO; +ROBAXIN500 M1 PO
== END | disposition home or self-care (01) ==
LOC: RESCLI 03:29
DX: E11.65 Type 2 diabetes mellitus with hyperglycemia (principal); E11.42 Type 2 diabetes mellitus with diabetic polyneuropathy; L03.115 Cellulitis of right lower limb; B37.2 Candidiasis of skin and nail; F41.8 Other specified anxiety disorders; E66.01 Morbid (severe) obesity due to excess calories; E78.5 Hyperlipidemia, unspecified; E55.9 Vitamin D deficiency, unspecified; Z79.899 Other long term (current) drug therapy; Z88.8 Allergy status to other drugs, medicaments and biological substances

== ENCOUNTER → 2018-06-02 | Outpatient (CLI) | payer SELFPAY | END | disposition home or self-care (01) | LOC: RESCLI 07:41 | DX: E11.65 Type 2 diabetes mellitus with hyperglycemia (principal); L03.115 Cellulitis of right lower limb; B37.2 Candidiasis of skin and nail; F41.8 Other specified anxiety disorders; E11.42 Type 2 diabetes mellitus with diabetic polyneuropathy; E66.01 Morbid (severe) obesity due to excess calories; E78.5 Hyperlipidemia, unspecified; E55.9 Vitamin D deficiency, unspecified; I10 Essential (primary) hypertension; Z91.09 Other allergy status, other than to drugs and biological substances; Z79.899 Other long term (current) drug therapy; Z88.8 Allergy status to other drugs, medicaments and biological substances ==

== ENCOUNTER → 2018-06-25 | Outpatient (CLI) | payer SELFPAY ==
[2018-06-25 11:24] LABS: CHOLESTEROL 192 mg/dL (<200); HDL CHOLESTEROL 37 mg/dl (40-60); LDL CHOLESTEROL 105 mg/dL (9-159); TRIGLYCERIDES 250 mg/dl (<150); VLDL CHOLESTEROL 50 mg/dL (6-40)
== END | disposition home or self-care (01) ==
LOC: LAB 10:32
PROVIDERS: Internal Medicine
DX: E11.65 Type 2 diabetes mellitus with hyperglycemia (principal); E55.9 Vitamin D deficiency, unspecified; E78.5 Hyperlipidemia, unspecified

== ENCOUNTER → 2018-07-09 | Outpatient (CLI) | payer MEDICAID | END | disposition home or self-care (01) | LOC: RESCLI 01:26 | DX: E66.01 Morbid (severe) obesity due to excess calories (principal); J18.9 Pneumonia, unspecified organism; R00.0 Tachycardia, unspecified; Z79.899 Other long term (current) drug therapy; Z90.49 Acquired absence of other specified parts of digestive tract; Z88.2 Allergy status to sulfonamides ==

== ENCOUNTER → 2019-04-01 | Outpatient (CLI) | payer OTHER ==
[~2019-04-01] MED LIST changes: +BASAG SOL SQ; +CEFEPIME2 GM/100 M IV; +DAILY VITAMIN1 EAC1 PO; +LEVEMIR FL100 UNIT/1 SQ; +NOVOLOG FL100 UNIT/2 SQ; +ULTRAM50 MG PO; +VITAMIN C500 M8 PO; +VITAMIN D350000 UNIT PO; +XARELTO10 MG PO; +ZINC-220220 MG PO
[2019-04-01 09:43] LABS: HEMATOCRIT 40.9 % (37.0-47.0); HEMOGLOBIN 13.1 g/dl (12.0-16.0); MEAN CELL VOLUME 83.8 fl (81.0-99.0); MEAN CORPUSCULAR HGB 26.8 pg (27.0-31.0); MEAN PLATELET VOLUME 10.1 fl (9.6-12.3); RED BLOOD COUNT 4.88 10*6/uL (4.10-5.10); RED CELL DISTRI WIDTH 13.3 % (0-14.5); WHITE BLOOD COUNT 12.5 10*3/uL (4.8-10.8)
[2019-04-01 10:02] LABS: ALBUMIN 3.2 gm/dl (3.1-4.5); ALKALINE PHOSPHATASE 129 U/L (45-117); BUN 22 mg/dl (7-24); CHLORIDE 101 mmol/L (98-107); CHOLESTEROL 211 mg/dL (<200); CPK 81 U/L (26-192); CREATININE 1.07 mg/dL (0.55-1.02); HDL CHOLESTEROL 38 mg/dl (40-60); LDL CHOLESTEROL 114 mg/dL (9-159); POTASSIUM 4.1 mmol/L (3.5-5.1); SGOT/AST 11 IU/L (3-35); SGPT/ALT 19 U/L (12-78); SODIUM 136 mmol/L (136-145); TOTAL PROTEIN 7.9 gm/dL (6.4-8.2); TRIGLYCERIDES 294 mg/dl (<150); VLDL CHOLESTEROL 59 mg/dL (6-40)
[2019-04-01 10:52] LABS: VITAMIN D, 25-HYDROXY 13.7 ng/mL (30-100)
[2019-04-05 11:07] LABS: TESTOSTERONE FREE, (DIRECT) 2.6 pg/mL (0.0-4.2)
== END | disposition home or self-care (01) ==
LOC: LAB 08:58
PROVIDERS: Nurse Practitioner Family
DX: E28.2 Polycystic ovarian syndrome (principal); E66.9 Obesity, unspecified; E11.9 Type 2 diabetes mellitus without complications; E78.00 Pure hypercholesterolemia, unspecified; I10 Essential (primary) hypertension; R53.83 Other fatigue; G62.9 Polyneuropathy, unspecified

== ENCOUNTER 2019-05-02 11:37 | Inpatient (IN) | payer OTHER ==
[~2019-05-02] VITALS: Ht 167.6 cm; Wt 151.2 kg
[~2019-05-02 11:37] MED LIST changes: -BASAG SOL SQ; -CEFEPIME2 GM/100 M IV; -DAILY VITAMIN1 EAC1 PO; -LEVEMIR FL100 UNIT/1 SQ; -NOVOLOG FL100 UNIT/2 SQ; -ULTRAM50 MG PO; -VITAMIN C500 M8 PO; -VITAMIN D350000 UNIT PO; -XARELTO10 MG PO; -ZINC-220220 MG PO
[2019-05-02 11:41] VITALS: BP 124/67
[2019-05-02 13:09] VITALS: BP 146/84
[2019-05-02 13:58] LABS: HEMATOCRIT 34.3 % (37.0-47.0); MEAN CELL VOLUME 83.1 fl (81.0-99.0); MEAN CORPUSCULAR HGB 26.6 pg (27.0-31.0); MEAN CORPUSCULAR HGB CONC 32.1 g/dl (33.0-37.0); MEAN PLATELET VOLUME 9.6 fl (9.6-12.3); PLATELET COUNT AUTOMATED 444 10*3/uL (130-400); RED BLOOD COUNT 4.13 10*6/uL (4.10-5.10); RED CELL DISTRI WIDTH 13.3 % (0-14.5); WHITE BLOOD COUNT 20.8 10*3/uL (4.8-10.8)
[2019-05-02 14:16] LABS: ACT PARTIAL THROMBO TIME 28.8 SECONDS (20.0-32.1)
[2019-05-02 14:30] LABS: ALBUMIN 2.7 gm/dl (3.1-4.5); ALKALINE PHOSPHATASE 156 U/L (45-117); BUN 14 mg/dl (7-24); CHLORIDE 97 mmol/L (98-107); CREATININE 1.07 mg/dL (0.55-1.02); LIPASE 93 U/L (73-393); POTASSIUM 4.2 mmol/L (3.5-5.1); SGOT/AST 25 IU/L (3-35); SGPT/ALT 52 U/L (12-78); SODIUM 131 mmol/L (136-145); TOTAL PROTEIN 8.1 gm/dL (6.4-8.2)
[2019-05-02 14:31] LABS: PLATELET SUFFICIENCY NORMAL (NORMAL); TOTAL CELLS COUNTED 100 #CELLS
[2019-05-02 14:33] LABS: TROPONIN I < 0.015 ng/ml (<0.045)
[2019-05-02 15:57] LABS: BILIRUBIN NEGATIVE (NEGATIVE); BLOOD 1+ (NEGATIVE); COLOR YELLOW (YELLOW); GLUCOSE 3+ (NEGATIVE); KETONE NEGATIVE (NEGATIVE); LEUKO ESTERASE NEGATIVE (NEGATIVE); NITRITE NEGATIVE (NEGATIVE); SPECIFIC GRAVITY 1.025 (1.005-1.030)
[2019-05-02 16:18] LABS: BACTERIA 1+; CLARITY SL CLOUDY (CLEAR); RBC 0-2 rbc/hpf (0-2)
--- NOTE | 2019-05-02 16:33 | NUR ---
PT IS STABLE AND READY FOR TRANSPORT TO INPATIENT ROOM. PT WILL HAVE GOWN TO CHANGE INTO UPSTAIRS.
[2019-05-02 16:43] VITALS: BP 142/76
[2019-05-02 17:00] VITALS: BP 144/102
--- NOTE | 2019-05-02 17:00 | NUR ---
A 38, admitted to 5E, under the services of Dr. SHANIA MASTERS,VINCENT Patterson with a diagnosis of DIABETIC FOOT ULCER. Chief complaint is PAIN TO LEFT LEG. Patient arrived via ambulatory from ER. Monitor applied. Initial assessment completed. Vital signs taken and recorded. DR. SHANIA MASTERS,VINCENT Patterson notified of admission to the unit. Orders received. See assessment for past medical history, medications and allergies. Patient and/or family oriented to unit. [facility] visitation policy reviewed. Clothing/patient valuable form completed. ARACELI GREENE
--- NOTE | 2019-05-02 18:37 | NUR ---
AND NOTIFIED OF CONSULTS. NEW ORDER FOR ESR RATE WITH AM LABS AND WET TO DRY DRESSING. WILL ASSESS WOUND TOMORROW FOR BETTER DRESSING ORDERS.
[2019-05-02] MEDS ORDERED: VITAMIN D350000 UNIT PO (19:39)
[2019-05-02] MEDS ORDERED: LEVEMIR FL100 UNIT/1 SQ (19:42)
[2019-05-02 20:00] VITALS: BP 120/70
--- NOTE | 2019-05-02 21:43 | NUR ---
PT REQUESTING 40U OF LANTUS. "AFRAID MY SUGAR WILL DROP AND I'M NOT ALLOWED TO EAT THE REST OF THE NIGHT." SEE MAR.
[2019-05-03] VITALS (8 sets, daily range): BP systolic 106–163; BP diastolic 49–97
--- NOTE | 2019-05-03 | NUR ---
AAOX3 WATCHING T.V. VOICES NO C/O AT THIS TIME. NPO STATUS REINFORCED; PT. VERBALIZED AN UNDERSTANDING. CALL LIGHT WITHIN REACH.
--- NOTE | 2019-05-03 05:26 | NUR ---
NAOMI SMITH [id number] Please refer to the physician's history and physical for past medical history, comorbid conditions, and allergies. Diagnosis: DIABETIC FOOT ULCER,HYPERGLYCEMIA,SEPSIS,CELLULITI Jonah Score: 20,LOW OR NO RISK WOUND DESCRIPTIONS: Wound Number: 1 Location of the wound: left lateral aspect of foot distal Type of wound: unstageable Thickness: Full Size: 0.9cm x 1.9cm x 0.6cm Tunneling: none Undermining: none Sinus Tract: none Presence of Exudate: Serosanguineous Amount: Light Color: Yellow, red, brown Odor: None Periwound Skin Appearance: Erythema Wound edges: approximated Pain (associated with wound): tender to touch How does patient state this happened? pt stated this started about 1 month ago she stated she was following for an area on her left great toe and when they wrap her the wrap was to tight and caused blisters to her outer foot and now she has this area she states she follows with Dr. Hercules and Dr. Lacey every thursday and also gets her right lower extremity wrap due to edema. Wound Number: 2 Location of the wound: left lateral aspect of foot proximal Type of wound: deep tissue pressure injury Size: 0.6cm x 1.2cm x <0.1cm Tunneling: none Undermining: none Sinus Tract: none Presence of Exudate: none Amount: None Color: Purple, dark red Odor: None Periwound Skin Appearance: Erythema Wound edges: approximated Pain (associated with wound): tender to touch How does patient state this happened? pt stated this started about 1 month ago she stated she was following for an area on her left great toe and when they wrap her the wrap was to tight and caused blisters to her outer foot and now she has this area she states she follows with Dr. Hercules and Dr. Lacey every thursday and also gets her right lower extremity wrap due to edema. Wound Number: 3 Location of the wound: plantar aspect of left great toe Type of wound: unstageable Thickness: Full Size: 0.6cm x 2.5cm x <0.1cm Tunneling: none Undermining: none Sinus Tract: none Presence of Exudate: none Amount: None Color: Brown, yellow Odor: None Periwound Skin Appearance: Normal Wound edges: approximated Pain (associated with wound): none at time of assessment How does patient state this happened? pt stated this started about 1 month ago she stated she was following for an area on her left great toe and when they wrap her the wrap was to tight and caused blisters to her outer foot and now she has this area she states she follows with Dr. Hercules and Dr. Lacey every thursday and also gets her right lower extremity wrap due to edema. Surface the patient is resting on: Isoflex SKIN PREVENTION RECOMMENDATION: 1. Pressure redistribution support surface as appropriate 2. Elevate heels 3. Remove boots/TEDS every shift and reapply 4. Head of bed 30 degrees as tolerated 5. Assess nutrition and hydration 6. Manage moisture 7. Avoid the use of containment devices while in bed 8. Use absorptive products on surfaces limit layers of linens on bed 9. Turn and reposition every 1-2 hours in bed and every 1 hour in chair as tolerated 10. Weight shifts every 15 minutes while up in chair 11. Offloading with pillows or device to keep heels elevated off bed 12. Monitor skin at least every shift 13. Inspect under medical devices twice a day WOUND TREATMENT RECOMMENDATIONS: Podiatry and ID already on consult podiatry stated that when they see patient today they will make new wound care orders. Patient is possible scheduled for surgery. Heel raiser pro boots while in bed. Patients states that she will continue to follow up in the podiatry office upon discharge.
--- NOTE | 2019-05-03 05:27 | NUR ---
MEDICATED WITH NORCO FOR C/O LEFT FOOT PAIN RATED A 6/10.
[2019-05-03 06:25] LABS: HEMATOCRIT 33.1 % (37.0-47.0); HEMOGLOBIN 10.4 g/dl (12.0-16.0); MEAN CELL VOLUME 83.2 fl (81.0-99.0); MEAN CORPUSCULAR HGB 26.1 pg (27.0-31.0); MEAN CORPUSCULAR HGB CONC 31.4 g/dl (33.0-37.0); MEAN PLATELET VOLUME 9.7 fl (9.6-12.3); PLATELET COUNT AUTOMATED 424 10*3/uL (130-400); RED BLOOD COUNT 3.98 10*6/uL (4.10-5.10); RED CELL DISTRI WIDTH 13.3 % (0-14.5); WHITE BLOOD COUNT 15.2 10*3/uL (4.8-10.8)
[2019-05-03 06:32] LABS: BUN 17 mg/dl (7-24); CHLORIDE 100 mmol/L (98-107); CREATININE 1.18 mg/dL (0.55-1.02); POTASSIUM 4.3 mmol/L (3.5-5.1); SODIUM 132 mmol/L (136-145)
[2019-05-03 06:55] LABS: BASOPHILS 1 % (0-1); TOTAL CELLS COUNTED 100 #CELLS
[2019-05-03 06:56] LABS: OVALOCYTES FEW; PLATELET SUFFICIENCY HIGH (NORMAL); POLYCHROMASIA SLIGHT
--- NOTE | 2019-05-03 07:21 | NUR ---
ARRIVED ON SHIFT, INTRODUCED TO PATIENT BEDSIDE REPORT RECEIVED, WHITE BOARD UPDATED, NO NEEDS VOICED AT THIS TIME.
--- NOTE | 2019-05-03 08:30 | NUR ---
Rack Carrier in to talk to patient. Patient states lives at home with her friend, Natty. There are 1 steps in the home. Physician: Dr. Denton Holm Pharmacy: [facility] Home health services: none Patient's level of ADLs: INDEPENDENT Patient has working utilities: yes DME: none Follow-up physician's appointment after d/c: she prefers to make her own follow up appt after discharge Does patient want to access PORTAL?: no Discharge plan discussed with patient. She lives at home with her friend, Natty. She is independent in her ADLs and ambulation. Discussed home health care services and she denies any home needs at this time. When medically stable she will be discharged to home. Her will provide transportation on discharge. ANJUM GLORIA
--- NOTE | 2019-05-03 15:19 | NUR ---
PATIENT C/O OF SHOOTING BACK PAIN 03/29 MEDICATED WITH IBUPROFEN
--- NOTE | 2019-05-03 15:24 | NUR ---
PATIENT CONTINUES TO HAVE NAUSEA, AND HAD EMESIS, CALL PLACED TO DR. JAUREGUI, ORDER RECEIVED FOR REGLAN.
--- NOTE | 2019-05-03 16:18 | NUR ---
PATIENT REPORTS PAIN IS SOMEWHAT BETTER AND IS NOW 3/10
--- NOTE | 2019-05-03 22:22 | NUR ---
PATIENT REQUESTING PAIN MEDICATION FOR LEG PAIN RATED 9/10 ON 0/10 SCALE. NORCO ADMINISTERED PRESCRIBED. WILL MONITOR FOR EFFECTIVENESS.
--- NOTE | 2019-05-03 22:49 | NUR ---
IV REMOVED FROM RIGHT AC. MIDLINE HAS BLOOD RETURN AND FLUSHING GOOD.
--- NOTE | 2019-05-03 23:22 | NUR ---
PATIENT RESTING WITH EYES CLOSED AT THIS TIME. RESPIRATIONS EASY AND UNLABORED. CALL [place] T[place] WITHIN REACH. WILL MONITOR.
[2019-05-04] VITALS: BP 115/57
--- NOTE | 2019-05-04 04:26 | NUR ---
24 HR chart check completed.
[2019-05-04 08:00] VITALS: BP 117/57
--- NOTE | 2019-05-04 10:30 | NUR ---
Manager Talent Acquisition in to see patient. Discussed home wound vac and she is agreeable. Discussed home IV antibiotics if needed. Discussed home health care services and she is agreeable. When provided with a list of agencies she chose [facility]. When medically stable she will be discharged to home.
--- NOTE | 2019-05-04 10:34 | NUR ---
PODIATRY HERE. WOUND DRESSING REMOVED. POST OP PICTURES TAKEN. WOUND VAC APPLIED. 200MG CONTINUOUS SUCTION.
--- NOTE | 2019-05-04 10:44 | NUR ---
PATIENT C/O LEFT FOOT PAIN. RATE 8/10 ON PAIN SCALE. MEDICATED WITH NORCO PER PRN ORDER. WILL CONTINUE TO MONITOR.
[2019-05-04 12:00] VITALS: BP 101/58
--- NOTE | 2019-05-04 12:00 | NUR ---
PATIENT RESTING QUIETLY. GURNEE EFFECTIVE. WILL CONTINUE TO MONITOR.
--- NOTE | 2019-05-04 13:48 | NUR ---
Faxed completed [facility] wound vac form to [facility]. Awaiting response.
[2019-05-04 16:00] VITALS: BP 96/50
--- NOTE | 2019-05-04 16:20 | NUR ---
PATIENT C/O LEFT FOOT PAIN. MEDICATED WITH NORCO PER PRN ORDER. WILL CONTINUE TO MONITOR.
[2019-05-04 20:00] VITALS: BP 123/71
--- NOTE | 2019-05-04 20:20 | NUR ---
PATIENT MEDICATED WITH MOTRIN PER PRN ORDER FOR C/O HEADACHE . RATED PAIN A 5/10 WITH 10 BEING THE WORST. SEE EMAR. REINFORCED USE OF CALL LIGHT.
--- NOTE | 2019-05-04 22:00 | NUR ---
MEDICATION SL EFFECTIVE FOR HEADACHE. RATED PAIN A 3/10 WITH 10 BEING THE WORST. REINFORCED USE OF CALL LIGHT.
--- NOTE | 2019-05-04 23:57 | NUR ---
PATIENT RESTING QUIETLY. DENIES PAIN AT THIS TIME.
[2019-05-05] VITALS: BP 126/66
--- NOTE | 2019-05-05 02:43 | NUR ---
24 HR chart check completed.
[2019-05-05 08:00] VITALS: BP 107/46
--- NOTE | 2019-05-05 09:00 | NUR ---
Hash Slinger in to see patient. She requested short term SNF due to IV antibiotics and wound vac. When provided with a list of facilities she chose [facility]. grey roll worker notified.
[2019-05-05 09:40] LABS: BASO # 0.1 10*3/uL (0.0-0.1); BASO % 0.5 % (0.0-1.0); EOS # 0.4 10*3/uL (0.0-0.4); EOS % 2.5 % (1.0-4.0); HEMATOCRIT 31.5 % (37.0-47.0); HEMOGLOBIN 9.6 g/dl (12.0-16.0); LYMPH # 2.9 10*3/uL (1.3-4.4); LYMPH % 19.2 % (27.0-41.0); MEAN CELL VOLUME 86.1 fl (81.0-99.0); MEAN CORPUSCULAR HGB 26.2 pg (27.0-31.0); MEAN CORPUSCULAR HGB CONC 30.5 g/dl (33.0-37.0); MEAN PLATELET VOLUME 9.6 fl (9.6-12.3); MONO # 1.2 10*3/uL (0.1-1.0); NEUT # 10.2 10*3/uL (2.3-7.9); PLATELET COUNT AUTOMATED 424 10*3/uL (130-400); RED BLOOD COUNT 3.66 10*6/uL (4.10-5.10); RED CELL DISTRI WIDTH 13.4 % (0-14.5); WHITE BLOOD COUNT 14.9 10*3/uL (4.8-10.8)
--- NOTE | 2019-05-05 09:40 | NUR ---
SPOKE WITH DR SEXTON REGARDING PICC LINE ORDER. INFORMED THAT PT CURRENTLY HAS MIDLINE. STATES NO NEED FOR PICC LINE.
--- NOTE | 2019-05-05 10:50 | NUR ---
MEDICATED WITH MOTRIN FOR COMPLAINTS OF HEADACHE. ALSO GIVEN ZOFRAN FOR NAUSEA. WILL MONITOR FOR EFFECTIVENESS.
[2019-05-05] MEDS ORDERED: CEFEPIME2 GM/100 M IV (11:18)
--- NOTE | 2019-05-05 11:41 | NUR ---
PHYSICAL THERAPY Physical therapy evaluation completed, 5E. Full details and evaluation to follow. Moderate complexity determined after evaluation/chart review, [id number]. PT to work on endurance, gait, transfer, balance, strength. Recommending SNF at discharge. Thank you Alba Francisco, PT, DPT
--- NOTE | 2019-05-05 11:44 | NUR ---
ANATOMIC PATHOLOGY MANAGER notified of patient wanting to be referred to [facility]. ANATOMIC PATHOLOGY MANAGER faxed new referral to [facility]. -SOWMYA Scott
[2019-05-05 12:00] VITALS: BP 145/88
--- NOTE | 2019-05-05 13:00 | NUR ---
PT STATES EARLIER MOTRIN HELPED WITH HEADACHE, DOES STILL REPORT NAUSEA. STATES SHE HAS NOT HAD A BM FOR A FEW DAYS AND THINKS THAT IS WHY. REQUESTING MILK OF MAGNESIA.
--- NOTE | 2019-05-05 13:12 | NUR ---
SOWMYA received notice from [facility]. They are not able to accept the patient will have Nursing Unit Clerkcontact lens molder [employer] for pricing. -SOWMYA Scott
--- NOTE | 2019-05-05 14:25 | NUR ---
Occupational Therapy evaluation completed on 5 with full eval to follow. Precautions include wound vac LLE, obesity,heel weight bear on LLE,IV antibiotics, low complexity [id number] for therapy. Recommend no further OT. If patient is discharged to live w/ family she will need a bariatric bedside commode, hospital bed, and a wide wheelchair. If patient lives with her boyfriend and his mother she will need a wide wheelchair for transport for IV antibiotics and wound care follow up d/t partial weight bearing and obesity. Thank you Lisa Montero OTR/L
[2019-05-05 16:00] VITALS: BP 126/65
[2019-05-05 17:09] LABS: ACID FAST SPEC PROCESSING Tissue Grinding (.)
[2019-05-05 20:00] VITALS: BP 158/91
[2019-05-05 20:30] VITALS: BP 139/66
--- NOTE | 2019-05-05 22:24 | NUR ---
ZOFRAN GIVEN PER PRN ORDER FOR C/O NAUSEA. SEE EMAR. REINFORCED USE OF CALL LIGHT.
[2019-05-06] VITALS: BP 139/81
[2019-05-06 06:28] LABS: CREATININE 1.33 mg/dL (0.55-1.02)
--- NOTE | 2019-05-06 07:00 | NUR ---
MORNING BLOOD GLUCOSE 66. REFUSED D50 PER ORDER FOR BLOOD SUGAR LESS THAN 70. STATED IT WOULD MAKE SUGAR TOO HIGH LATER. CORNFLAKES GIVEN WITH EQUUAL AND 2% milk given.
--- NOTE | 2019-05-06 07:30 | NUR ---
Bioscripts not in network with [facility]. Referral sent to [facility]. Awaiting response.
--- NOTE | 2019-05-06 07:41 | NUR ---
Reached out to Linda at [facility] regarding wound vac delivery. Awaiting response.
--- NOTE | 2019-05-06 07:48 | NUR ---
Spoke to Denis at [facility], wound vac has been released and will be delivered today.
[2019-05-06 08:00] VITALS: BP 128/44
--- NOTE | 2019-05-06 08:30 | NUR ---
Automatic Winder Operator in to see patient. Discussed her not qualifying for [facility] and she verbalized an understanding. She did ask if she could go to another facility. When provided with a list of facilities she chose [facility]. second worker notified. She doesn't want to go home because she is afraid of the sanitation. She lives with a couple of other people, 4 dogs, and 2 children. She states her bed is low to the floor and she is afraid she will not be able to get up. She states she could sleep on the sofa in her room. Asked about staying with her mother for a short time and she said no. Her mother's bathroom is also upstairs and she would not be able to get up the stairs. She said maybe she could stay with her [id number] but it was not ideal either. Discharge plan undecided at this time. Patient will have surgery on Thursday with podiatry.
--- NOTE | 2019-05-06 09:01 | NUR ---
SOWMYA received call from Muriel at [facility]. Patient would be covered at 100% for IVAB Infusions. Solution Coordinator Rachel is aware. [facility] will need clinicals sent to fax [phone]. GOAT DRIVER will fax Clinicals. -SOWMYA Scott
--- NOTE | 2019-05-06 09:18 | NUR ---
MEDICATED WITH ZOFRAN FOR COMPLAINTS OF NAUSEA, WILL MONITOR.
--- NOTE | 2019-05-06 09:35 | NUR ---
PHYSICAL THERAPY Pt in bed with head of bed elevated upon arrival. Pt states " I am not feeling well at all could you please come back after lunch." PT will try again at a later time/date. Rafaela Starr PTA
--- NOTE | 2019-05-06 09:54 | NUR ---
PT HAVING SOME SWELLING IN HANDS AND ARMS. SPOKE WITH DR JAUREGUI REGARDING IV FLUIDS. ORDER RECEIVED TO D/C IV FLUIDS.
--- NOTE | 2019-05-06 11:00 | NUR ---
PT STATES EARLIER ZOFRAN GAVE SOME RELIEF. STILL HAS SOME MILD NAUSEA.
--- NOTE | 2019-05-06 11:30 | NUR ---
MEDICATED WITH MILK OF MAGNESIA FOR CONSTIPATION. WILL MONITOR FOR EFFECTIVENESS.
--- NOTE | 2019-05-06 11:46 | NUR ---
Spoke to Oren from [facility]. Wound vac to be delivered between 1 and 2 pm today.
[2019-05-06 12:00] VITALS: BP 122/49
--- NOTE | 2019-05-06 13:00 | NUR ---
CLINICAL SOCIAL WORKER faxed new referral to [facility] to review. -SILVANO ScottW
--- NOTE | 2019-05-06 13:51 | NUR ---
PHYSICAL THERAPY Patient was resting supine in bed when approached for therapy visit and reports feeling a little better from am c/o of incresaed Nausea. Patient however still reporting increased c/o of L foot / toe pain, stating she had just returned from [facility] transfer and wanted to continue her rest in bed. Will continue per POC as tolerated. Kishore Banda, CHIEF RISK OFFICER
--- NOTE | 2019-05-06 14:02 | NUR ---
Discussed with patient referral sent to [facility]. Outpatient wound vac at bedside. If [facility]'t accept patient, she would like to go to her [id number]'s home in [place]. grain mill worker following.
--- NOTE | 2019-05-06 15:46 | NUR ---
Patient will require a PRECERT but has been approved to go to [facility]. Tag And Label Cutter is aware. -SOWMYA Scott
--- NOTE | 2019-05-06 15:48 | NUR ---
Notified patient and her who is sitting at her bedside regarding her approval to go to [facility]. lot worker following.
[2019-05-06 16:00] VITALS: BP 155/84
--- NOTE | 2019-05-06 16:07 | NUR ---
PHYSICAL THERAPY CO-SIGN I approve of the Phyical Therapy notes written above. MAUDE CHAVEZ
[2019-05-06 20:00] VITALS: BP 148/75
--- NOTE | 2019-05-06 21:18 | NUR ---
MOTRIN GIVEN FOR C/O HEADACHE. PATIENT REQUESTED ONLY 60 UNITS OF LANTUS D/T LOW AM BLOOD SUGAR THS AM.
[2019-05-07] VITALS: BP 144/81
--- NOTE | 2019-05-07 06:10 | NUR ---
PATIENT MEDICATED WITH ZOFRAN FOR C/O NAUSEA AND MOTRIN GIVEN FOR C/O HEADACHE. RATED PAIN A 7/10 WITH 10 BEING THE WORST. SEE EMAR. REINFORCED USE OF CALL LIGHT.
[2019-05-07 08:00] VITALS: BP 137/84
[2019-05-07 12:00] VITALS: BP 123/54
--- NOTE | 2019-05-07 13:30 | NUR ---
PATIENT MEDICATED WITH NORCO AT THIS TIME FOR COMPLAINTS OF PAIN IN LEFT FOOT 01/26. WILL MONITOR FOR EFFECTIVENESS.
--- NOTE | 2019-05-07 13:45 | NUR ---
WOUND VAC CHANGED AT THIS TIME AND PHOTO TAKEN WELL. PT TOLERATED WELL.
--- NOTE | 2019-05-07 14:47 | NUR ---
PER PATIENT, PAIN MEDICATION HAS BEEN EFFECTIVE. NO FURTHER COMPLAINTS AT THIS TIME.
[2019-05-07 16:00] VITALS: BP 119/55
[2019-05-07 20:00] VITALS: BP 141/79
[2019-05-08] VITALS: BP 141/86
--- NOTE | 2019-05-08 01:30 | NUR ---
ASLEEP; AROUSES EASILY UPON ENTERING ROOM. PULSE OX RETAKEN AT THIS TIME & IS 94% ON ROOM AIR. PT. ENCOURAGED TO TAKE BREATHS; VERBALIZED UNDERSTANDING. CALL LIGHT WITHIN REACH.
--- NOTE | 2019-05-08 06:30 | NUR ---
BLOOD SUGAR 122; NO COVERAGE REQUIRED.
[2019-05-08 08:00] VITALS: BP 125/66
[2019-05-08 12:00] VITALS: BP 133/65
[2019-05-08 16:00] VITALS: BP 135/62
[2019-05-08 20:00] VITALS: BP 128/88
--- NOTE | 2019-05-08 21:42 | NUR ---
PT REQUESTED ONLY 40 UNITS OF LANTUS INSTEAD OF 80 BECAUSE SHE IS GOING TO BE NPO AND DID NOT WANT HER SUGAR TO DROP
--- NOTE | 2019-05-08 21:44 | NUR ---
PRN NORCO GIVEN FOR PT COMPLAINTS OF FOOT PAIN RATING IT 6/10. CALL LIGHT WITHIN REACH, WILL MONITOR
[2019-05-09] VITALS (11 sets, daily range): BP systolic 119–175; BP diastolic 61–95
--- NOTE | 2019-05-09 00:55 | NUR ---
PATIENT RESTING IN BED IN A POSITION OF COMFORT, RESPIRATIONS EASY AND NONLABORED AT THIS TIME. NO SIGNS OR SYMPTOMS OF PAIN NOTED AT THIS TIME. CALL LIGHT WITHIN REACH, WILL CONTINUE TO MONITOR.
--- NOTE | 2019-05-09 04:10 | NUR ---
PATIENT RESTING IN A POSITION OF COMFORT, RESPIRATIONS EASY AND NONLABORED AT THIS TIME, NOT AWAKENED PER IM POLICY. CALL LIGHT WITHIN REACH, WILL CONTINUE TO MONITOR
--- NOTE | 2019-05-09 07:39 | NUR ---
PT IS FOUND IN ROOM TO BE SITTING UP IN CHAIR, VOMITING INTO BASIN. ZOFRAN 4 MG VIA IV GIVEN AT THIS TIME. WILL MONITOR FOR EFFECTIVENESS. PT ALSO COMPLAINING OF HEADACHE. PT DOES NOT HAVE ANY MEDICATIONS ON VIA IV FOR PAIN, WILL NOTIFY DR JAUREGUI TO OBTAIN ORDERS. PATIENT ATTENDANT IS SITTING WITH PATIENT UNTIL NURSING STAFF CAN RETURN.
--- NOTE | 2019-05-09 07:51 | NUR ---
Patient requires a PRECERT but has been accepted at [facility]. APPLICATIONS PROGRAMMER faxed updates to [facility]. -SOWMYA Scott
--- NOTE | 2019-05-09 08:22 | NUR ---
NOTIFIED DR JAUREGUI THAT PT IS C/O PAIN TO FOREHEAD, RATES PAIN A "9". ALSO NOTIFIED PHYSICIAN THAT PT HAD ONE EPISODE OF YELLOW EMESIS AT 0730 AND THAT IV ZOFRAN 4 MG WAS GIVEN AT THAT TIME. NEW ORDERS RECEIVED FOR IV TORADOL 30 MG X 1 NOW. WILL NOTIFY PATIENT AND MEDICATE WHEN AVAILABLE TO PULL.
--- NOTE | 2019-05-09 08:39 | NUR ---
PT STATES THAT ZOFRAN IS EFFECTIVE.
--- NOTE | 2019-05-09 09:12 | NUR ---
ASSESSMENT COMPLETE ON PATIENT AT THIS TIME. PT STATES THAT SHE IS STARTING TO FEEL A LITTLE NAUSEOUS AGAIN. SURGERY HAS CALLED TO LET NURSING STAFF KNOW THAT THEY WILL BE UP TO TAKE HER TO SURGERY SOON. PATIENT NOTIFIED OF THIS. WILL NOTIFY SURGERY THAT PT HAS BEEN GIVEN MEDICATIONS FOR NAUSEA AND HEADACHE. WILL ALSO NOTIFY SURGERY THAT PT IS STILL C/O NAUSEA. OTHERWISE, NO FURTHER COMPLAINTS FROM PATIENT. NO PAIN ANYWHERE. NO SHORTNESS OF BREATH. RESPIRATIONS UNLABORED ON ROOM AIR. VITALS WNL. FAMILY SITTING IN ROOM WITH PATIENT. CALL LIGHT IN REACH.
--- NOTE | 2019-05-09 09:51 | NUR ---
PHYSICAL THERAPY Patient was out of her room this am for Surgery and not available for treatment at this time. Will continue later per POC as able. Kishore Banda, INDUSTRIAL TECH INSTRUCTOR
--- NOTE | 2019-05-09 10:30 | NUR ---
Cell Efficiency Supervisor in to see patient. She is currently not in her room. Will follow up at a later time. Referral to Khang Agarwal, waiting on precert. harvest worker field crop following.
--- NOTE | 2019-05-09 12:11 | NUR ---
PRECERT has been started. SOWMYA completed HENs. -SOWMYA Scott
--- NOTE | 2019-05-09 12:24 | NUR ---
RECEIVED REPORT ON PATIENT FROM SURGERY RNFRANCIS.
--- NOTE | 2019-05-09 12:53 | NUR ---
Spoke to Dr. Pollard. Patient can be discharged from podiatry standpoint. Dr. Hsu wanted to know if a KCI wound vac was available. Explained the KCI wound vac is in patient's room. Podiatry will apply.
--- NOTE | 2019-05-09 13:23 | NUR ---
PT CAUGHT UP ON AM MEDICATIONS AT THIS TIME, AFTER RETURNING FROM SURGERY.
--- NOTE | 2019-05-09 14:03 | NUR ---
PT GIVEN MOTRIN 800 MG PO AT THIS TIME FOR C/O PAIN TO BILATERAL FEET/LEGS. WILL MONITOR FOR EFFECTIVENESS. PT LYING IN BED AT THIS TIME. ALL NEEDS ARE MET AT THIS TIME. IV ANTIBIOTIC INFUSING PER ORDERS. WOUND VAC IN TACT, WITH SANGUINEOUS DRAINAGE IN CHAMBER. BILATERAL WOUND DRESSINGS C/D/I. CALL LIGHT IN REACH.
--- NOTE | 2019-05-09 14:15 | NUR ---
PHYSICAL THERAPY Patient seen this pm 1;1 for therapy visit and was supine in bed upon therapist arrival. Patient identified by name / and presents with L foot wound vac. Patient is NWB on L LE following surgical procedure this am and reports 3/10 L foot pain. Patient stated she had just completed therapy with OTR and did not feel like getting up again so soon. Patient agreed to and performed supine B LE therex, all planes, 2 x 10 reps each, including Quad / Glute sets to increase LE strength. Patient completed all ex without c/o and remained in bed with call light, tray table, computer and cell phone. Will continue per POC as tolerated, total treatment time 16 minutes. Kishore Banda, POWER REACTOR SUPERVISOR
--- NOTE | 2019-05-09 14:15 | NUR ---
Occupational Therapy referral received and chart reviewed. Patient was evaluated 05/05/19 and no OT indicated. Patient was heel weight bearing only at the time. She is now NWB LLE after surgical procedure. She continues to be independent in self care, transfers to [facility]. At this time no further OT indicated. Discharge OT referral. Thank you. Herminia Prado OTR/adeel
--- NOTE | 2019-05-09 14:42 | NUR ---
PRECERT is still pending. -SOWMYA Scott
--- NOTE | 2019-05-09 16:25 | NUR ---
PT DENIES NEEDING ANYTHING AT THIS TIME. PT DENIES PAIN. 5 UNITS INSULIN GIVEN PER S/S ON EMAR FOR A BLOOD SUGAR OF 211. PT LYING IN BED. WOUND VAC IN TACT, DRAINING SANGUINEOUS DRAINAGE. BILATERAL DRESSINGS TO LEGS C/D/I. CALL LIGHT IN REACH.
--- NOTE | 2019-05-09 19:30 | NUR ---
24 HOUR CHART CHECK COMPLETE
--- NOTE | 2019-05-09 20:10 | NUR ---
PATIENT ASSESSMENT COMPLETE AT THIS TIME WITHOUT INCIDENT, PATIENT DENIES ANY SHORTNESS OF BREATH, CHEST PAIN OR OTHER DISCOMFORT AT THIS TIME. BGL 206, SEE EMAR. CALL LIGHT WITHIN REACH, WILL CONTINUE TO MONITOR.
--- NOTE | 2019-05-09 21:05 | NUR ---
PATIENT GIVEN MOTRIN AT THIS TIME REQUESTED FOR PAIN. STATED THAT HER FOOT WAS STARTING TO PULSATE, DESCRIBED PAIN 5/10.
--- NOTE | 2019-05-09 21:45 | NUR ---
REASSESSED PAIN AND PATIENT STATED THAT IT WAS BETTER AND ABOUT A 2/10
[2019-05-10] VITALS: BP 118/59
--- NOTE | 2019-05-10 00:05 | NUR ---
PATIENT RESTING IN BED IN A POSITION OF COMFORT WATCHING TV AT THIS TIME,DENIES ANY NEEDS OR DISTRESS AT THIS TIME. CALL LIGHT WITHIN REACH.
--- NOTE | 2019-05-10 04:05 | NUR ---
PATIENT RESTING IN BED IN A POSITION OF COMFORT, NO SIGNS OR SYMPTOMS OF DISTRESS NOTED AT THIS TIME, NOT AWAKENED PER [facility] POLICY. CALL LIGHT WITHIN REACH, WILL CONTINUE TO MONITOR.
--- NOTE | 2019-05-10 05:14 | NUR ---
LUISNAOMI [id number] Please refer to the physician's history and physical for past medical history, comorbid conditions, and allergies. Diagnosis: DIABETIC FOOT ULCER,HYPERGLYCEMIA,SEPSIS,CELLULITI Jonah Score: 20,LOW OR NO RISK WOUND DESCRIPTIONS: Dressing intact to left lower extremity. Wound vac at 200mmHg continous low intensity. Dressing intact to right lower extremity. No strikethrough drainage noted to right or left lower extremity. Patient stated both dressings were changed in surgery yesterday and she is to follow up in Dr. Hercules's office every Thursday. Patient stated that she is probaly going to go to [facility]. Surface the patient is resting on: Isoflex SKIN PREVENTION RECOMMENDATION: 1. Pressure redistribution support surface as appropriate 2. Elevate heels 3. Remove boots/TEDS every shift and reapply 4. Head of bed 30 degrees as tolerated 5. Assess nutrition and hydration 6. Manage moisture 7. Avoid the use of containment devices while in bed 8. Use absorptive products on surfaces limit layers of linens on bed 9. Turn and reposition every 1-2 hours in bed and every 1 hour in chair as tolerated 10. Weight shifts every 15 minutes while up in chair 11. Offloading with pillows or device to keep heels elevated off bed 12. Monitor skin at least every shift 13. Inspect under medical devices twice a day WOUND TREATMENT RECOMMENDATIONS: Podiatry is maintaing patients dressing to bilateral feet.
[2019-05-10 08:00] VITALS: BP 142/77
--- NOTE | 2019-05-10 10:00 | NUR ---
Knotter Hand in to see patient. No new needs or request at this time. When medically stable and precert is obtained she will be discharged to [facility].
--- NOTE | 2019-05-10 11:41 | NUR ---
[facility] -SOWMYA Scott
[2019-05-10 12:00] VITALS: BP 140/73
--- NOTE | 2019-05-10 12:23 | NUR ---
Notified Dr. Elvia clinton was received for patient to go to [facility].
--- NOTE | 2019-05-10 12:27 | NUR ---
PRECERT has been obtained. Patient can go to [facility] if medically stable. Automatic Toe Laster Rachel has been notified. -SOWMYA Scott
--- NOTE | 2019-05-10 12:43 | NUR ---
Spoke to Dr. Gan. Patient will be discharged tomorrow 05/11 to [facility].
--- NOTE | 2019-05-10 12:49 | NUR ---
Notified Cheryle at [facility] regarding patient going to a SNF; therefore, IV antibiotics are not needed at home.
--- NOTE | 2019-05-10 13:15 | NUR ---
PHYSICAL THERAPY Patient seen this pm 1;1 for therapy visit and was supine in bed upon therapist arrival. Patient was very pleasant, presenting with L foot wound vac and identified by name / . Patient transfers supine to sit EOB with CGA and tolerates EOB sit x several minutes to collect herself. Patient reviewed weight bearing status and is NON weight bearing on L LE. Patient performed several sit to stand transfers at bedside, CGA with use of wh walker standing support. Patient tolerated approx 1 minute static stand each trial prior to quick onset of fatigue. Patient instructed on safe 90 / 180 SPT, use of wh walker, CGA, demonstrating very cautious posture. Patient needed v/c to complete all standing pivots with Fair safety awareness. Patient returned to supine in bed and remained with call light, tray table, cell phone, and computer. Will continue per POC as tolerated, total treatment time 17 minutes. Kishore Banda, ACETONE BUTTON PASTER
--- NOTE | 2019-05-10 14:09 | NUR ---
Discharge instructions reviewed with patient. Patient receptive and verbalizes understanding. Follow-up care arranged. Written instructions given to patient. SONIA DIETZ
--- NOTE | 2019-05-10 14:45 | NUR ---
Patients PRECERT is good until per Moo Agarwal. Fruit And Vegetable Packer Rachel is aware. -SOWMYA Scott
--- NOTE | 2019-05-10 15:25 | NUR ---
MEDICATED WITH PRN PO MOTRIN FOR LEFT FOOT PAIN.
[2019-05-10 16:00] VITALS: BP 140/67
[2019-05-10 16:07] LABS: ACID FAST SPEC PROCESSING Tissue Grinding (.)
[2019-05-10 16:07] LABS: ACID FAST SPEC PROCESSING Tissue Grinding (.)
--- NOTE | 2019-05-10 19:01 | NUR ---
24 HR chart check completed.
[2019-05-10 20:00] VITALS: BP 145/65
--- NOTE | 2019-05-10 21:09 | NUR ---
PRN ROBXIN WAS GIVEN FOR MUSCLE SPASMS. WILL MONITOR EFFECTIVENESS.
--- NOTE | 2019-05-10 22:10 | NUR ---
PRN ROBAXIN WAS EFFECTIVE. PT IS RESTING COMFORTABLY IN THE BED WITH NO SIGNS OF DISTRESS.
--- NOTE | 2019-05-10 23:11 | NUR ---
PRN MOTRIN WAS GIVEN FOR A PAIN LEVEL OF 7. STATES IT IS A SHARP/SHOOTING PAIN IN HER LEFT FOOT. WILL REASSESS EFFECTIVENESS.
[2019-05-11] VITALS: BP 118/74
--- NOTE | 2019-05-11 04:19 | NUR ---
PRN MOTRIN WAS EFFECTIVE. PT IS CURRENTLY SLEEPING WITH NO SIGNS OF DISTRESS.
[2019-05-11 08:00] VITALS: BP 135/78
--- NOTE | 2019-05-11 08:48 | NUR ---
Notified Dr. Gan of patient's authorization to be discharged to [facility] when medically stable. Plan is to discharge patient today. farmworker following.
--- NOTE | 2019-05-11 10:20 | NUR ---
MEDICATED WITH PRN PO MOTRIN FOR RIGHT FOOT THROBBING PAIN RATES 5/10 ON PAIN SCALE.
--- NOTE | 2019-05-11 10:50 | NUR ---
PHYSICAL THERAPY PT SUPINE IN BED UPON ARRIVAL THIS A.M. ATTEMP. PT ASK TO BE SEEN AFTER LUNCH. PHYSICAL THERAPY WILL TRY AGAIN AT A LATER TIME. ALLI SOW PTA
[2019-05-11] MEDS ORDERED: LISINOPRIL5 MG PO (11:01)
--- NOTE | 2019-05-11 11:15 | NUR ---
PODIATRY RESIDENTS IN TO CHANGE WOUND VAC TO PORTABLE VAC FOR DISCHARGE. DISCHARGE WOUND PHOTOS OBTAINED.
[2019-05-11 12:00] VITALS: BP 157/99
--- NOTE | 2019-05-11 12:00 | NUR ---
PHYSICAL THERAPY PT SUPINE IN BED WITH HEAD OF BED ELEVATED UPON ARRIVAL. PT IDENTIFIED BY ZANDER CONTRERAS. PT AGREED TO ALL THERAPY TREATMENT. PT PERFORMED BED MOBILITY SUPINE TO SITTING EOB WITH VC'S FOR SAFETY. PT PERFORMED STS TO AND FROM EOB WITH FWW WITH VC'S FOR SAFETY TO PUSH FROM BED AND NOT PULL ON WALKER. PT [id number] DEGREE PIVIOT TURN WITH FWW WITH SBA. PT PERFOREMD STS TO AND FROM EOB 5X WITH PROPER SAFETY. PT PERFORMED SIT TO SUPINE WITH VC'S FOR SAFETY WITH WOUND VAC AND LLE. PT USE PROPER PERCAUTIONS THOUGH OUT THERAPY SESSION. PT SEEN 1:1 FOR 15MIN. ALLI SOW ORACLE EBS DEVELOPER
--- NOTE | 2019-05-11 12:25 | NUR ---
ARRANGEMENTS BEING MADE FOR DISCHARGE TO [facility] FOR IV ANTIBIOTIC THERAPY TO CONTINUE - LATER TODAY.
--- NOTE | 2019-05-11 12:26 | NUR ---
STUDIO OPERATIONS MANAGER notified of patients discharge orders. STUDIO OPERATIONS MANAGER spoke with Patient who stated she does not have a ride to [facility]. STUDIO OPERATIONS MANAGER spoke with Work Layout Mankaya Jimenez who stated that Maria E was in a patients room. Barbara stated later in the afternoon would be best. STUDIO OPERATIONS MANAGER spoke with [facility] who said they would transport the patient at 3pm to their facility. STUDIO OPERATIONS MANAGER then spoke with Carol who stated she would help Maria E complete the paper work for the patient to be discharged at 3pm. Patients was present when STUDIO OPERATIONS MANAGER informed her [facility] would transport her at 3pm. STUDIO OPERATIONS MANAGER faxed discharge orders to [facility]. -SOWMYA Scott
--- NOTE | 2019-05-11 12:26 | NUR ---
PRN PO MOTRIN EFFECTIVE, PER PATIENT.
--- NOTE | 2019-05-11 15:14 | NUR ---
Discharge instructions reviewed with patient/family. Patient receptive and verbalizes understanding. Follow-up care arranged. Written instructions given to patient/family. PATIENT DISCHARGED TO [facility] BY WHEELCHAIR ACCOMPANIED BY FAMILY MEMBER AND [facility] STAFF FOR TRANSPORT TO [facility] BY [facility]. REPORT CALLED TO RECEIVING NURSE AT [facility]. SONIA DIETZ
--- NOTE | 2019-05-12 07:58 | NUR ---
PHYSICAL THERAPY CO-SIGN I approve of the Physical Therapy notes written above. MAUDE CHAVEZ
[2019-06-14] MEDS ORDERED: BASAG SOL SQ (11:03)
[2019-06-14] MEDS ORDERED: NOVOLOG FL100 UNIT/2 SQ (11:03)
[2019-06-14] MEDS ORDERED: VITAMIN C500 M8 PO (11:04)
[2019-06-14] MEDS ORDERED: PRAVACHOL40 MG PO (11:04)
[2019-06-14] MEDS ORDERED: ZOFRAN4 MG PO (11:05)
[2019-06-14] MEDS ORDERED: ZINC-220220 MG PO (11:05)
[2019-06-14] MEDS ORDERED: DAILY VITAMIN1 EAC1 PO (11:05)
[2019-06-15 12:09] LABS: ACID FAST CULTURE Negative (.)
[2019-06-15] MEDS ORDERED: ULTRAM50 MG PO (12:19)
[2019-06-15] MEDS ORDERED: XARELTO10 MG PO ×2 (12:20→12:21)
[2019-06-22 15:10] LABS: ACID FAST CULTURE Negative (.)
[2019-06-22 15:10] LABS: ACID FAST CULTURE Negative (.)
== END 2019-05-11 17:33 | disposition other institution (70) | DRG 710 ==
LOC: ED 11:37 → 5E 15:41 → EDHOLD 15:41 → 5E 15:55
PROVIDERS: Physician Assistant; Podiatrist; Student in an Organized Health Care Education/Training Program; ADMIT Internal Medicine
PROC: 0Q9P0ZX Drainage of Left Metatarsal, Open Approach, Diagnostic (ICD-10-PCS; 2019-05-03)
PROC: 0QBP0ZZ Excision of Left Metatarsal, Open Approach (ICD-10-PCS; principal; 2019-05-09)
PROC: 0QBP0ZX Excision of Left Metatarsal, Open Approach, Diagnostic (ICD-10-PCS; 2019-05-09)
PROC: 0HRNXK3 Replacement of Left Foot Skin with Nonautologous Tissue Substitute, Full Thickness, External Approach (ICD-10-PCS; 2019-05-09)
DX: A41.9 Sepsis, unspecified organism (principal); E43 Unspecified severe protein-calorie malnutrition; E11.621 Type 2 diabetes mellitus with foot ulcer; E11.65 Type 2 diabetes mellitus with hyperglycemia; E66.01 Morbid (severe) obesity due to excess calories; E78.2 Mixed hyperlipidemia; I10 Essential (primary) hypertension; K76.0 Fatty (change of) liver, not elsewhere classified; L97.529 Non-pressure chronic ulcer of other part of left foot with unspecified severity; E11.42 Type 2 diabetes mellitus with diabetic polyneuropathy; F33.0 Major depressive disorder, recurrent, mild; E11.43 Type 2 diabetes mellitus with diabetic autonomic (poly)neuropathy; K31.84 Gastroparesis; F41.9 Anxiety disorder, unspecified; K74.60 Unspecified cirrhosis of liver; G43.909 Migraine, unspecified, not intractable, without status migrainosus; M86.172 Other acute osteomyelitis, left ankle and foot; R62.7 Adult failure to thrive; L03.115 Cellulitis of right lower limb; L03.116 Cellulitis of left lower limb; L02.612 Cutaneous abscess of left foot; D72.820 Lymphocytosis (symptomatic); G24.01 Drug induced subacute dyskinesia; Z79.899 Other long term (current) drug therapy; Z68.43 Body mass index [BMI] 50.0-59.9, adult; Z79.4 Long term (current) use of insulin; Z88.8 Allergy status to other drugs, medicaments and biological substances; Z90.89 Acquired absence of other organs; Z90.49 Acquired absence of other specified parts of digestive tract; Z82.49 Family history of ischemic heart disease and other diseases of the circulatory system; Z83.3 Family history of diabetes mellitus; Z80.41 Family history of malignant neoplasm of ovary

== ENCOUNTER → 2019-06-15 | Day surgery (SDC) | payer OTHER ==
[~2019-06-15] VITALS: Ht 167.6 cm; Wt 156.5 kg
[~2019-06-15] MED LIST changes: +BASAG SOL SQ; +CEFEPIME2 GM/100 M IV; +DAILY VITAMIN1 EAC1 PO; +LEVEMIR FL100 UNIT/1 SQ; +NOVOLOG FL100 UNIT/2 SQ; +ULTRAM50 MG PO; +VITAMIN C500 M8 PO; +VITAMIN D350000 UNIT PO; +XARELTO10 MG PO; +ZINC-220220 MG PO
[2019-06-15 10:14] VITALS: BP 137/85
[2019-06-15 11:58] VITALS: BP 133/82
[2019-06-15 12:13] VITALS: BP 122/74
[2019-06-15 12:28] VITALS: BP 120/74
[2019-06-15 12:43] VITALS: BP 119/73
[2019-06-15 12:58] VITALS: BP 118/74
[2019-06-16 16:07] LABS: ACID FAST SPEC PROCESSING Tissue Grinding (.)
== END | disposition home or self-care (01) ==
LOC: SDC 06-13 11:45
PROVIDERS: Podiatrist
DX: L97.522 Non-pressure chronic ulcer of other part of left foot with fat layer exposed (principal); E11.621 Type 2 diabetes mellitus with foot ulcer; A41.9 Sepsis, unspecified organism; E11.65 Type 2 diabetes mellitus with hyperglycemia; E78.5 Hyperlipidemia, unspecified; E55.9 Vitamin D deficiency, unspecified; I10 Essential (primary) hypertension; E11.40 Type 2 diabetes mellitus with diabetic neuropathy, unspecified; G43.009 Migraine without aura, not intractable, without status migrainosus; K76.0 Fatty (change of) liver, not elsewhere classified; K74.0 Hepatic fibrosis; F33.0 Major depressive disorder, recurrent, mild; L03.115 Cellulitis of right lower limb; L03.116 Cellulitis of left lower limb; E43 Unspecified severe protein-calorie malnutrition; F41.9 Anxiety disorder, unspecified; E66.01 Morbid (severe) obesity due to excess calories; Z68.43 Body mass index [BMI] 50.0-59.9, adult; Z98.890 Other specified postprocedural states; Z83.3 Family history of diabetes mellitus

== ENCOUNTER → 2019-11-28 | Outpatient (CLI) | payer OTHER ==
[2019-11-28 15:42] LABS: HEMATOCRIT 35.4 % (37.0-47.0); MEAN CELL VOLUME 82.5 fl (81.0-99.0); MEAN CORPUSCULAR HGB 26.3 pg (27.0-31.0); MEAN CORPUSCULAR HGB CONC 31.9 g/dl (33.0-37.0); MEAN PLATELET VOLUME 9.5 fl (9.6-12.3); RED BLOOD COUNT 4.29 10*6/uL (4.10-5.10); RED CELL DISTRI WIDTH 13.8 % (0-14.5); WHITE BLOOD COUNT 16.9 10*3/uL (4.8-10.8)
[2019-11-28 15:57] LABS: ALBUMIN 2.8 gm/dl (3.1-4.5); ALKALINE PHOSPHATASE 123 U/L (45-117); BUN 29 mg/dl (7-24); CHLORIDE 104 mmol/L (98-107); CHOLESTEROL 175 mg/dL (<200); CPK 85 U/L (26-192); CREATININE 1.21 mg/dL (0.55-1.02); HDL CHOLESTEROL 36 mg/dl (40-60); LDL CHOLESTEROL 104 mg/dL (9-159); POTASSIUM 4.2 mmol/L (3.5-5.1); SGOT/AST 19 IU/L (3-35); SGPT/ALT 28 U/L (12-78); SODIUM 136 mmol/L (136-145); TOTAL PROTEIN 7.6 gm/dL (6.4-8.2); TRIGLYCERIDES 173 mg/dl (<150); VLDL CHOLESTEROL 35 mg/dL (6-40)
== END | disposition home or self-care (01) ==
LOC: LAB 14:49
PROVIDERS: Family Medicine
DX: I10 Essential (primary) hypertension (principal); E55.9 Vitamin D deficiency, unspecified; F41.1 Generalized anxiety disorder; E74.00 Glycogen storage disease, unspecified

== ENCOUNTER → 2019-12-30 | Outpatient (CLI) | payer OTHER ==
[~2019-12-30] MED LIST changes: +GABAPENTIN800 MG PO; +METFORMIN XR500 MG PO
== END | disposition home or self-care (01) ==
LOC: COVID19 08:13
DX: Z01.818 Encounter for other preprocedural examination (principal); Z11.59 Encounter for screening for other viral diseases

== ENCOUNTER 2020-01-03 12:06 | Inpatient (IN) | payer OTHER ==
[~2020-01-03] VITALS: Ht 167.6 cm; Wt 157.6 kg
[~2020-01-03 12:06] MED LIST changes: -GABAPENTIN800 MG PO; -METFORMIN XR500 MG PO
[2020-01-03 12:16] VITALS: BP 137/91
--- NOTE | 2020-01-03 13:23 | NUR ---
PT CAME IN FOR ADMISSION FROM PODIATRY WITH BILATERAL DEEPTI BOOTS ...DRESSINGS NOT TO BE CHANGED IN ER FOR WOUND PICS PER ER DIRECTOR KEVIN--DAINA MOORE RN
[2020-01-03 13:26] LABS: BASO # 0.1 10*3/uL (0.0-0.1); BASO % 0.4 % (0.0-1.0); EOS # 0.2 10*3/uL (0.0-0.4); EOS % 1.5 % (1.0-4.0); LYMPH # 3.7 10*3/uL (1.3-4.4); LYMPH % 26.8 % (27.0-41.0); MEAN CELL VOLUME 84.2 fl (81.0-99.0); MEAN CORPUSCULAR HGB CONC 30.9 g/dl (33.0-37.0); MEAN PLATELET VOLUME 9.7 fl (9.6-12.3); MONO # 0.7 10*3/uL (0.1-1.0); MONO % 5.4 % (3.0-9.0); NEUT % 65.5 % (47.0-73.0); PLATELET COUNT AUTOMATED 430 10*3/uL (130-400); RED BLOOD COUNT 3.92 10*6/uL (4.10-5.10); WHITE BLOOD COUNT 13.7 10*3/uL (4.8-10.8)
[2020-01-03 13:43] LABS: ALKALINE PHOSPHATASE 114 U/L (45-117); BUN 26 mg/dl (7-24); CHLORIDE 105 mmol/L (98-107); CREATININE 1.23 mg/dL (0.55-1.02); POTASSIUM 3.6 mmol/L (3.5-5.1); SGOT/AST 12 IU/L (3-35); SGPT/ALT 28 U/L (12-78); SODIUM 138 mmol/L (136-145); TOTAL PROTEIN 7.8 gm/dL (6.4-8.2)
[2020-01-03 13:48] LABS: BETA-HCG, QUANT < 1.0 mIU/mL (1-3)
[2020-01-03 14:07] VITALS: BP 129/77
--- NOTE | 2020-01-03 14:55 | NUR ---
DR FENTON ROUNDED AND SEEN PT. ALREADY AWARE OF NEW CONSULT.
[2020-01-03 15:00] VITALS: BP 125/75
--- NOTE | 2020-01-03 15:00 | NUR ---
Time: 1499 A 39 year old FEMALE admitted to 5E under services of DR. SHANIA MASTERS,VINCENT Jauregui Pt. arrived via bed from ER. Chief complaint: CELLULITIS OF RIGHT LOWER EXTREMITY. SHAHLA CONNOLLY
--- NOTE | 2020-01-03 15:15 | NUR ---
WOUND CARE PHOTOS COMPLETED TO RIGHT LOWER FOOT. PT HAS UNNA BOOT ON LEFT LEG. PT UNNA BOOT TO REMAIN INTACT TO LEFT LEG/FOOT UNTIL DR CUEVAS. PT PART OF A CASE STUDY. PT TOLERATED WELL. CALL LIGHT IN REACH.
[2020-01-03] MEDS ORDERED: GABAPENTIN800 MG PO (15:41)
[2020-01-03] MEDS ORDERED: METFORMIN XR500 MG PO (15:42)
--- NOTE | 2020-01-03 15:43 | NUR ---
MEDS RECONCILED WITH PT AT BEDSIDE AND AGAINST MED CLAIM HISTORY.
[2020-01-03 16:00] VITALS: BP 125/75
--- NOTE | 2020-01-03 19:40 | NUR ---
MEDICATED WITH MOTRIN FOR C/O RIGHT FOOT PAIN.
[2020-01-03 20:00] VITALS: BP 131/79
--- NOTE | 2020-01-03 20:15 | NUR ---
STATES MOTRIN HELPING RELIEVE HER PAIN.
--- NOTE | 2020-01-03 22:35 | NUR ---
BLOOD SUGAR 179; PT. REQUESTING 1/2 OF THE INSULIN SHE USUALLY RECEIVES DUE TO BEING NPO AFTER MIDNIGHT.
--- NOTE | 2020-01-03 23:58 | NUR ---
PATIENT IS SLEEPING WITH EASY AND REGULAR RESPERS ON ROOM AIR. AWAKENS EASILY FOR ASSESSMENT. ASSESSMENT IS COMPLETE. BED IS LOW, LOCKED, AND CALL LIGHT IS WITHIN REACH, WILL CONTINUE TO MONITOR. SEE INTERVENTIONS.
[2020-01-04] VITALS: BP 118/81
--- NOTE | 2020-01-04 02:06 | NUR ---
CHART CHECK COMPLETE.
--- NOTE | 2020-01-04 03:25 | NUR ---
PATIENT SLEEPING WITH EASY AND REGULAR RESPERS ON ROOM AIR. BED IS LOW, LOCKED, AND CALL LIGHT IS WITHIN REACH.
--- NOTE | 2020-01-04 06:31 | NUR ---
PATIENT BATHED WITH HIBACLEANSE SOAP AND BED LINENS CHANGED.
--- NOTE | 2020-01-04 06:54 | NUR ---
NAOMI SMITH [id number] Please refer to the physician's history and physical for past medical history, comorbid conditions, and allergies. Diagnosis: CELLULITIS OF RT LOWER EXTREMITY SEPSIS Jonah Score: 19,LOW OR NO RISK WOUND DESCRIPTIONS: Wound Number: 1 Right lower extremity dressing intact. Patient is requesting it to be kept intact until podiatry does surgery this afternoon. Scant amount of strikethrough drainage noted to plantar aspect of foot. Wound Number: 2 Left lower extremity unna boot intact. Patient states unna boot should be removed next thursday because she is in a study for this area. Surface the patient is resting on: Isoflex SKIN PREVENTION RECOMMENDATION: 1. Pressure redistribution support surface as appropriate 2. Elevate heels 3. Remove boots/TEDS every shift and reapply 4. Head of bed 30 degrees as tolerated 5. Assess nutrition and hydration 6. Manage moisture 7. Avoid the use of containment devices while in bed 8. Use absorptive products on surfaces limit layers of linens on bed 9. Turn and reposition every 1-2 hours in bed and every 1 hour in chair as tolerated 10. Weight shifts every 15 minutes while up in chair 11. Offloading with pillows or device to keep heels elevated off bed 12. Monitor skin at least every shift 13. Inspect under medical devices twice a day WOUND TREATMENT RECOMMENDATIONS: podiatry and ID is following patient and will continue to follow up with podiatry upon discharge.
--- NOTE | 2020-01-04 07:48 | NUR ---
Spoke with Dr. Ferrell regarding wound care recommendations and she stated she will put them in today.
[2020-01-04 08:00] VITALS: BP 117/61
--- NOTE | 2020-01-04 08:00 | NUR ---
Patient resting quietly with no c/o discomfort. Respirations easy and regular. Vital signs stable. No overt distress. KAYA BROWNING
--- NOTE | 2020-01-04 09:00 | NUR ---
Awning Spreader in to talk to patient. Patient states lives at home with 2 girlfriends, a radha friend, her , 2 children, and 2 dogs. There are 0 steps in the home. She says there are steps in the home but her bedroom is on the first floor close to the bathroom. Physician: Dr. Denton Holm Pharmacy: [facility] health services: none Patient's level of ADLs: INDEPENDENT Patient has working utilities: yes DME: none Follow-up physician's appointment after d/c: she prefers to make her own follow up appt after discharge Does patient want to access PORTAL?: no Discharge plan discussed with patient. She lives at home with her family. She is independent in her ADLs and ambulation. Discussed discharge if she needed IV antibiotics and a wound vac. She would like to return home with home health care services. She states the place she is currently living is much more sanitary than the last place. When provided with a list of agencies she chose [facility]. When medically stable she will be discharged to home. She states her will provide transportation on discharge. ANJUM GLORIA
--- NOTE | 2020-01-04 14:00 | NUR ---
Patient resting quietly with no c/o discomfort. Respirations easy and regular. Vital signs stable. No overt distress. KAYA BROWNING
[2020-01-04 16:00] VITALS: BP 116/65
--- NOTE | 2020-01-04 21:00 | NUR ---
PATIENT RESTING COMFORTABLY IN BED. VOICES NO COMPLAINTS. RESPIRATIONS EASY, NON LABORED. CALL LIGHT WITHIN REACH. WILL CONTINUE TO MONTIOR.
[2020-01-05] VITALS: BP 103/48
--- NOTE | 2020-01-05 04:42 | NUR ---
PATIENT BLOOD SUGAR,87. GIVEN A BOX LUNCH AND 2 APPLE JUICES. WILL CONTINUE TO [facility].
[2020-01-05 08:00] VITALS: BP 128/82
--- NOTE | 2020-01-05 08:00 | NUR ---
Patient resting quietly with no c/o discomfort. Respirations easy and regular. Vital signs stable. No overt distress. KAYA BROWNING
--- NOTE | 2020-01-05 09:00 | NUR ---
Boring Mill Operator in to see patient. No new needs or request at this time. When medically stable she will be discharged to home with [facility] services.
--- NOTE | 2020-01-05 11:43 | NUR ---
MEDICATED WITH PO TYLENOL ORDERED PER PT REQUEST FOR C/O HEADACHE RATED 6/10.
--- NOTE | 2020-01-05 12:51 | NUR ---
MEDICATION EFFECTIVE FOR PAIN.
[2020-01-05 16:00] VITALS: BP 134/86
--- NOTE | 2020-01-05 16:14 | NUR ---
Patient resting quietly with no c/o discomfort. Respirations easy and regular. Vital signs stable. No overt distress. KAYA BROWNING
[2020-01-06] VITALS: BP 118/65
[2020-01-06 07:25] LABS: BUN 24 mg/dl (7-24); CHLORIDE 106 mmol/L (98-107); POTASSIUM 4.3 mmol/L (3.5-5.1); SODIUM 137 mmol/L (136-145)
[2020-01-06 07:26] LABS: CREATININE 1.14 mg/dL (0.55-1.02)
--- NOTE | 2020-01-06 07:34 | NUR ---
Shift chart check completed.
[2020-01-06 08:00] VITALS: BP 141/85
--- NOTE | 2020-01-06 08:00 | NUR ---
PT RESTING IN BED. VOICES NO CONCERNS AT THIS TIME. RESPS EASY AND NON LABORED. NO S/S OF DISTRESS NOTED. VSS. PRITI RAINEY UPADTED. POC DISCUSSED W PT. CALL LIGHT WITHIN REACH. DENIES PAIN AT THIS TIME. STATES SHE WANTS TO GO HOME. PP+. PT CAN WIGGLE TOES.
--- NOTE | 2020-01-06 10:53 | NUR ---
MESSAGE LEFT FOR DR SEXTON REGARDING DISCHARGE ABX. AWAITING CALL BACK
--- NOTE | 2020-01-06 11:01 | NUR ---
PER DR JAUREGUI PT CANNOT BE DISCHARGED UNTIL INFECTION CONTROL DECIDES ON DISCHARGE ABX
--- NOTE | 2020-01-06 11:21 | NUR ---
Circular Clerk in to see patient. No new needs or request at this time. She thinks she needs IV antibiotics at home. Will follow up. When medically stable she will be discharged to home.
--- NOTE | 2020-01-06 11:22 | NUR ---
No IV antibiotics are needed at home at this time, patient will be discharged on po antibiotics.
[2020-01-06] MEDS ORDERED: CEFEPIME2 GM/100 M IV (11:55)
--- NOTE | 2020-01-06 12:25 | NUR ---
Received script from Dr. Horta for cefepime 2 gm IV BID for 10 days. Etl Tester in to see patient. She is sitting on the edge of her bed. Discussed home IV antibiotics and she is agreeable. Discussed home health care services and she remains agreeable and would like [facility].
--- NOTE | 2020-01-06 12:41 | NUR ---
Faxed home health order to [facility] and [facility] for IV antibiotic of cefepime 2 gm IV BID for 10 days, awaiting midline.
--- NOTE | 2020-01-06 13:17 | NUR ---
SURGERY HERE TO PLACE [facility]
--- NOTE | 2020-01-06 14:04 | NUR ---
Discussed waiting on approval and cost of IV antibiotic. She verbalized an understanding, Midline is in.
--- NOTE | 2020-01-06 14:49 | NUR ---
Spoke to Fabi at [employer]. They are awaiting insurance benefits. Faxed midline information to [employer].
--- NOTE | 2020-01-06 14:54 | NUR ---
Faxed midline information to [employer] and COUNT INCLUDES THE [facility]
--- NOTE | 2020-01-06 15:21 | NUR ---
Spoke to Opal at [facility] regarding awaiting insurance approval for home IV antibiotics. Opal states she also spoke to [facility]. Patient is on [facility] schedule for tomorrow for start of care.
[2020-01-06 16:00] VITALS: BP 131/78
--- NOTE | 2020-01-06 16:29 | NUR ---
CALLED [employer] TO SEE IF THEY HAVE HEARD BACK FROM INSURANCE IF PT HAS COST FOR MEDS. COST OF MEDS COVERED.
--- NOTE | 2020-01-06 16:32 | NUR ---
PT CAN BE DISCHARGED TO HOME TODAY. ANTIBIOTICS ARE COVERED AT 100%.
--- NOTE | 2020-01-06 16:53 | NUR ---
Discharge instructions reviewed with patient/family. Patient receptive and verbalizes understanding. Follow-up care arranged. Written instructions given to patient/family. CICI ENGLISH The Discharge Plan/Instructions have been completed. Hep Lock discontinued IN [place]. Site asymptomatic. Pressure applied. Sterile dressing applied. CICI ENGLISH ARM MIDLINE INTACT.
[2020-01-26] MEDS ORDERED: XARELTO10 MG PO (13:30)
== END 2020-01-06 16:53 | disposition home or self-care (01) | DRG 383 ==
LOC: ED 12:06 → EDHOLD 12:58 → 5E 12:58
PROVIDERS: Emergency Medicine; ADMIT Internal Medicine
PROC: 05HB33Z Insertion of Infusion Device into Right Basilic Vein, Percutaneous Approach (ICD-10-PCS; principal; 2020-01-06)
PROC: B54MZZA Ultrasonography of Right Upper Extremity Veins, Guidance (ICD-10-PCS; 2020-01-06)
DX: L03.115 Cellulitis of right lower limb (principal); E11.621 Type 2 diabetes mellitus with foot ulcer; L08.9 Local infection of the skin and subcutaneous tissue, unspecified; E66.01 Morbid (severe) obesity due to excess calories; E11.42 Type 2 diabetes mellitus with diabetic polyneuropathy; I10 Essential (primary) hypertension; F32.9 Major depressive disorder, single episode, unspecified; E78.5 Hyperlipidemia, unspecified; G43.909 Migraine, unspecified, not intractable, without status migrainosus; E11.610 Type 2 diabetes mellitus with diabetic neuropathic arthropathy; I87.2 Venous insufficiency (chronic) (peripheral); E11.51 Type 2 diabetes mellitus with diabetic peripheral angiopathy without gangrene; B96.5 Pseudomonas (aeruginosa) (mallei) (pseudomallei) as the cause of diseases classified elsewhere; B96.1 Klebsiella pneumoniae [K. pneumoniae] as the cause of diseases classified elsewhere; Z90.49 Acquired absence of other specified parts of digestive tract; Z79.4 Long term (current) use of insulin; Z68.43 Body mass index [BMI] 50.0-59.9, adult; Z88.8 Allergy status to other drugs, medicaments and biological substances; Z79.899 Other long term (current) drug therapy; Z82.49 Family history of ischemic heart disease and other diseases of the circulatory system; Z83.3 Family history of diabetes mellitus; Z80.41 Family history of malignant neoplasm of ovary

== ENCOUNTER 2020-01-10 22:02 | Emergency (ER) | payer OTHER ==
[~2020-01-10] VITALS: Ht 167.6 cm; Wt 157.4 kg
[~2020-01-10 22:02] MED LIST changes: +GABAPENTIN800 MG PO; +METFORMIN XR500 MG PO
[2020-01-10 22:12] VITALS: BP 143/82
== END 2020-01-11 01:10 | disposition home or self-care (01) ==
LOC: ED 22:02
DX: T85.628A Displacement of other specified internal prosthetic devices, implants and grafts, initial encounter (principal); I10 Essential (primary) hypertension; E78.5 Hyperlipidemia, unspecified; G43.909 Migraine, unspecified, not intractable, without status migrainosus; E11.9 Type 2 diabetes mellitus without complications; F41.9 Anxiety disorder, unspecified; F32.9 Major depressive disorder, single episode, unspecified; Z88.8 Allergy status to other drugs, medicaments and biological substances; Z79.899 Other long term (current) drug therapy; Y92.89 Other specified places as the place of occurrence of the external cause

== ENCOUNTER 2020-01-16 23:04 | Emergency (ER) | payer OTHER ==
[~2020-01-16] VITALS: Wt 156.5 kg
== END 2020-01-17 00:29 | disposition home or self-care (01) ==
LOC: ED 23:04
DX: T82.898A Other specified complication of vascular prosthetic devices, implants and grafts, initial encounter (principal); T82.848A Pain due to vascular prosthetic devices, implants and grafts, initial encounter; E11.9 Type 2 diabetes mellitus without complications; Y83.8 Other surgical procedures as the cause of abnormal reaction of the patient, or of later complication, without mention of misadventure at the time of the procedure; Y92.89 Other specified places as the place of occurrence of the external cause

== ENCOUNTER → 2020-01-26 | Outpatient (CLI) | payer OTHER | END | disposition home or self-care (01) | LOC: COVID19 00:07 | DX: Z01.818 Encounter for other preprocedural examination (principal); Z11.59 Encounter for screening for other viral diseases ==

== ENCOUNTER → 2020-02-01 | Day surgery (SDC) | payer OTHER ==
[2020-01-26 13:27] VITALS: BP 148/89
[~2020-02-01] VITALS: Ht 167.6 cm; Wt 156.9 kg
[2020-02-01 07:00] VITALS: BP 128/103
[2020-02-01 08:35] VITALS: BP 165/99
[2020-02-01 08:43] VITALS: BP 149/87
[2020-02-01 08:58] VITALS: BP 151/89
[2020-02-01 09:07] VITALS: BP 151/89
[2020-02-01 09:13] VITALS: BP 152/87
[2020-02-02 10:09] LABS: ACID FAST SPEC PROCESSING Tissue Grinding (.)
== END | disposition home or self-care (01) ==
LOC: SDC 00:48
PROVIDERS: Podiatrist
DX: S81.802A Unspecified open wound, left lower leg, initial encounter (principal); E11.621 Type 2 diabetes mellitus with foot ulcer; E11.40 Type 2 diabetes mellitus with diabetic neuropathy, unspecified; F41.9 Anxiety disorder, unspecified; F32.9 Major depressive disorder, single episode, unspecified; X58.XXXA Exposure to other specified factors, initial encounter; Y93.89 Activity, other specified; Y92.89 Other specified places as the place of occurrence of the external cause; Y99.8 Other external cause status; Z98.890 Other specified postprocedural states; Z79.899 Other long term (current) drug therapy; Z88.8 Allergy status to other drugs, medicaments and biological substances

== ENCOUNTER → 2020-03-08 | Outpatient (CLI) | payer OTHER ==
[2020-03-08 13:08] LABS: BASO # 0.1 10*3/uL (0.0-0.1); BASO % 0.4 % (0.0-1.0); EOS # 0.1 10*3/uL (0.0-0.4); EOS % 0.9 % (1.0-4.0); HEMATOCRIT 35.8 % (37.0-47.0); LYMPH # 2.1 10*3/uL (1.3-4.4); LYMPH % 16.5 % (27.0-41.0); MEAN CELL VOLUME 81.7 fl (81.0-99.0); MEAN CORPUSCULAR HGB 26.3 pg (27.0-31.0); MEAN CORPUSCULAR HGB CONC 32.1 g/dl (33.0-37.0); MEAN PLATELET VOLUME 9.9 fl (9.6-12.3); MONO # 0.8 10*3/uL (0.1-1.0); MONO % 6.4 % (3.0-9.0); NEUT # 9.6 10*3/uL (2.3-7.9); NEUT % 74.9 % (47.0-73.0); PLATELET COUNT AUTOMATED 373 10*3/uL (130-400); RED BLOOD COUNT 4.38 10*6/uL (4.10-5.10); RED CELL DISTRI WIDTH 14.4 % (0-14.5); WHITE BLOOD COUNT 12.8 10*3/uL (4.8-10.8)
[2020-03-08 13:27] LABS: POTASSIUM 4.3 mmol/L (3.5-5.1)
== END | disposition home or self-care (01) ==
LOC: LAB 01:01 → COVID19 01:01
PROVIDERS: Podiatrist
DX: Z01.818 Encounter for other preprocedural examination (principal); G62.9 Polyneuropathy, unspecified; M13.879 Other specified arthritis, unspecified ankle and foot; Z11.59 Encounter for screening for other viral diseases

== ENCOUNTER → 2020-03-22 | Outpatient (CLI) | payer OTHER | END | disposition home or self-care (01) | LOC: COVID19 02:47 | PROVIDERS: ATTEND Podiatrist | DX: Z01.812 Encounter for preprocedural laboratory examination (principal); Z20.828 Contact with and (suspected) exposure to other viral communicable diseases ==

== ENCOUNTER → 2020-03-28 | Day surgery (SDC) | payer OTHER ==
[2020-03-28] VITALS (7 sets, daily range): BP systolic 108–144; BP diastolic 48–85
[~2020-03-28] VITALS: Ht 162.5 cm; Wt 157.4 kg
[2020-03-29 12:09] LABS: ACID FAST SPEC PROCESSING Tissue Grinding (.)
== END | disposition home or self-care (01) ==
LOC: SDC 03-08 12:30
PROVIDERS: ATTEND Podiatrist
DX: S93.149A Subluxation of metatarsophalangeal joint of unspecified toe(s), initial encounter (principal); M14.671 Charcot's joint, right ankle and foot; M19.071 Primary osteoarthritis, right ankle and foot; E11.9 Type 2 diabetes mellitus without complications; F41.9 Anxiety disorder, unspecified; F32.9 Major depressive disorder, single episode, unspecified; X58.XXXA Exposure to other specified factors, initial encounter; Y93.89 Activity, other specified; Y92.89 Other specified places as the place of occurrence of the external cause; Y99.8 Other external cause status; Z83.3 Family history of diabetes mellitus; Z79.899 Other long term (current) drug therapy; Z98.890 Other specified postprocedural states; Z79.84 Long term (current) use of oral hypoglycemic drugs

== ENCOUNTER 2020-04-26 07:45 | Inpatient (IN) | payer OTHER ==
[~2020-04-26] VITALS: Ht 167.6 cm; Wt 168.4 kg
[2020-04-26 07:49] VITALS: BP 168/77
[2020-04-26 08:42] LABS: BASO # 0.1 10*3/uL (0.0-0.1); BASO % 0.4 % (0.0-1.0); EOS # 0.1 10*3/uL (0.0-0.4); EOS % 0.9 % (1.0-4.0); HEMATOCRIT 29.7 % (37.0-47.0); LYMPH # 1.8 10*3/uL (1.3-4.4); LYMPH % 15.9 % (27.0-41.0); MEAN CELL VOLUME 79.8 fl (81.0-99.0); MEAN CORPUSCULAR HGB 25.3 pg (27.0-31.0); MEAN CORPUSCULAR HGB CONC 31.6 g/dl (33.0-37.0); MEAN PLATELET VOLUME 9.1 fl (9.6-12.3); MONO # 0.5 10*3/uL (0.1-1.0); NEUT # 8.8 10*3/uL (2.3-7.9); NEUT % 78.4 % (47.0-73.0); PLATELET COUNT AUTOMATED 426 10*3/uL (130-400); RED BLOOD COUNT 3.72 10*6/uL (4.10-5.10); RED CELL DISTRI WIDTH 13.8 % (0-14.5); WHITE BLOOD COUNT 11.2 10*3/uL (4.8-10.8)
[2020-04-26 09:01] LABS: ALBUMIN 2.8 gm/dl (3.1-4.5); CREATININE 1.24 mg/dL (0.55-1.02); POTASSIUM 4.9 mmol/L (3.5-5.1); TOTAL PROTEIN 7.9 gm/dL (6.4-8.2)
[2020-04-26 09:05] LABS: BILIRUBIN Negative (Negative); BLOOD 1+ (Negative); CLARITY Clear (Clear); COLOR Yellow (Yellow); GLUCOSE 1+ (Negative); KETONE Trace (Negative); LEUKO ESTERASE Trace (Negative); NITRITE Negative (Negative); UROBILINOGEN 0.2 E.U./dl (0.0-1.0)
[2020-04-26 09:30] LABS: BACTERIA 2+
[2020-04-26 12:03] VITALS: BP 152/68
--- NOTE | 2020-04-26 12:09 | NUR ---
PT RESTING IN BED, PT UP TO BEDSIDE COMMDE. PT STATES HER NAUSEA HAS RETURNED, STATES SHE WILL TAKE A RUNNING TRAY FOR LUNCH. CALL LIGHT IN REACH.
--- NOTE | 2020-04-26 12:26 | NUR ---
PT REPORTS DR WAGNER HUFF CALLD FOR ORDERS.
[2020-04-26 16:00] VITALS: BP 131/68; BP 148/62
[2020-04-26 16:15] VITALS: BP 131/68
--- NOTE | 2020-04-26 16:15 | NUR ---
A 39, admitted to 5E, under the services of AMAIRANI Cote MD with a diagnosis of GASTROENTERITS. Chief complaint is NAUSEA/VOMITING. Patient arrived via bed from ER. Monitor applied. Initial assessment completed. Vital signs taken and recorded. AMAIRANI COTE MD notified of admission to the unit. Orders received. See assessment for past medical history, medications and allergies. Patient and/or family oriented to unit. [facility] visitation policy reviewed. Clothing/patient valuable form completed. ISIS DE LA TORRE
--- NOTE | 2020-04-26 18:00 | NUR ---
Hep Lock discontinued to right antecubital discontinued due to site leaking. Site asymptomatic. Pressure applied. Sterile dressing applied. ISIS DE [place] TORRE
--- NOTE | 2020-04-26 19:30 | NUR ---
PT RESTING IN BED. RESPS EASY AND NON LABORED. NO S/S OF DISTRESS NOTED. VSS. WHITE BOARD UPDATED. POC DISCUSSED W PT. A/O X3. STATES SHE IS JUST A LITTLE NAUSEOUS. BULKY CAST/DRESSING NOTED TO RLE. TOES WARM TO THE TOUCH,DENIES NUMBNESS/TINGING.+WIGGLE TOES. NWB TO RLE. WILL CONTINUE TO MONITOR. CALL LIGHT WITHIN REACH.
--- NOTE | 2020-04-26 19:43 | NUR ---
PER DR EDWARD DISCONTINUE IVF
[2020-04-26 20:00] VITALS: BP 136/75
--- NOTE | 2020-04-26 20:00 | NUR ---
IV started left forearm with #22 protective cath after 1 attempts. Site prepped with Chloroprep. Sterile dressing applied. Patient tolerated procedure well.
--- NOTE | 2020-04-26 21:17 | NUR ---
PT C/O NAUSEA. MEDICATED PER ORDER. WILL CONTINUE TO MONITOR FOR RELIEF. REFUSING INSULIN COVERAGE AT THIS TIME FOR A BLOOD SUGAR OF 170. RESTING IN BED WATCHING TV. CALL LIGHT WITHIN REACH.
--- NOTE | 2020-04-26 22:00 | NUR ---
PT STATES REGLAN MOSTELY EFFECTIVE.
[2020-04-27] VITALS: BP 126/70
--- NOTE | 2020-04-27 02:50 | NUR ---
24 HR chart check completed.
[2020-04-27 06:46] LABS: BASO # 0.1 10*3/uL (0.0-0.1); BASO % 0.5 % (0.0-1.0); EOS # 0.2 10*3/uL (0.0-0.4); EOS % 1.9 % (1.0-4.0); LYMPH # 3.6 10*3/uL (1.3-4.4); LYMPH % 32.7 % (27.0-41.0); MEAN CELL VOLUME 81.3 fl (81.0-99.0); MEAN CORPUSCULAR HGB CONC 30.7 g/dl (33.0-37.0); MEAN PLATELET VOLUME 9.7 fl (9.6-12.3); MONO # 0.9 10*3/uL (0.1-1.0); MONO % 8.2 % (3.0-9.0); NEUT # 6.2 10*3/uL (2.3-7.9); NEUT % 56.3 % (47.0-73.0); PLATELET COUNT AUTOMATED 427 10*3/uL (130-400); RED BLOOD COUNT 3.32 10*6/uL (4.10-5.10); RED CELL DISTRI WIDTH 14.2 % (0-14.5); WHITE BLOOD COUNT 10.9 10*3/uL (4.8-10.8)
[2020-04-27 06:47] LABS: BUN 18 mg/dl (7-24); CHLORIDE 105 mmol/L (98-107); POTASSIUM 4.5 mmol/L (3.5-5.1); SODIUM 138 mmol/L (136-145)
[2020-04-27 06:51] LABS: CREATININE 1.18 mg/dL (0.55-1.02)
[2020-04-27 08:00] VITALS: BP 124/76
[2020-04-27] MEDS ORDERED: REGLAN5 MG PO (08:26)
--- NOTE | 2020-04-27 11:00 | NUR ---
Discharge instructions reviewed with patient/family. Patient receptive and verbalizes understanding. Follow-up care arranged. Written instructions given to patient/family. [facility]
== END 2020-04-27 11:00 | disposition home or self-care (01) | DRG 48 ==
LOC: ED 07:45 → EDHOLD 10:20 → 5E 12:34 → EDHOLD 12:34 → 5E 15:06
PROVIDERS: Emergency Medicine; ADMIT Internal Medicine; ATTEND Internal Medicine
DX: E11.43 Type 2 diabetes mellitus with diabetic autonomic (poly)neuropathy (principal); E11.22 Type 2 diabetes mellitus with diabetic chronic kidney disease; E66.01 Morbid (severe) obesity due to excess calories; K31.84 Gastroparesis; F41.9 Anxiety disorder, unspecified; K74.60 Unspecified cirrhosis of liver; F32.9 Major depressive disorder, single episode, unspecified; I12.9 Hypertensive chronic kidney disease with stage 1 through stage 4 chronic kidney disease, or unspecified chronic kidney disease; E78.5 Hyperlipidemia, unspecified; N18.32 Chronic kidney disease, stage 3b; G43.909 Migraine, unspecified, not intractable, without status migrainosus; E11.65 Type 2 diabetes mellitus with hyperglycemia; Z90.49 Acquired absence of other specified parts of digestive tract; Z88.8 Allergy status to other drugs, medicaments and biological substances; Z91.5 Personal history of self-harm; Z82.49 Family history of ischemic heart disease and other diseases of the circulatory system; Z80.41 Family history of malignant neoplasm of ovary; Z83.3 Family history of diabetes mellitus; Z79.4 Long term (current) use of insulin; Z68.43 Body mass index [BMI] 50.0-59.9, adult

== ENCOUNTER → 2020-05-11 | Outpatient (CLI) | payer OTHER | END | disposition home or self-care (01) | LOC: COVID19 00:16 | PROVIDERS: ATTEND Podiatrist | DX: Z01.818 Encounter for other preprocedural examination (principal); Z20.828 Contact with and (suspected) exposure to other viral communicable diseases ==

== ENCOUNTER → 2020-05-16 | Day surgery (SDC) | payer OTHER ==
[2020-05-11 12:39] VITALS: BP 132/72
[2020-05-11 13:35] LABS: BASO # 0.1 10*3/uL (0.0-0.1); BASO % 0.8 % (0.0-1.0); EOS # 0.2 10*3/uL (0.0-0.4); EOS % 2.1 % (1.0-4.0); HEMATOCRIT 31.9 % (37.0-47.0); LYMPH # 3.4 10*3/uL (1.3-4.4); LYMPH % 29.6 % (27.0-41.0); MEAN CELL VOLUME 82.2 fl (81.0-99.0); MEAN CORPUSCULAR HGB 24.7 pg (27.0-31.0); MEAN CORPUSCULAR HGB CONC 30.1 g/dl (33.0-37.0); MEAN PLATELET VOLUME 9.6 fl (9.6-12.3); MONO # 0.7 10*3/uL (0.1-1.0); MONO % 6.5 % (3.0-9.0); NEUT # 6.8 10*3/uL (2.3-7.9); NEUT % 60.3 % (47.0-73.0); PLATELET COUNT AUTOMATED 518 10*3/uL (130-400); RED BLOOD COUNT 3.88 10*6/uL (4.10-5.10); RED CELL DISTRI WIDTH 14.3 % (0-14.5); WHITE BLOOD COUNT 11.3 10*3/uL (4.8-10.8)
[2020-05-11 14:14] LABS: CHLORIDE 104 mmol/L (98-107); POTASSIUM 4.6 mmol/L (3.5-5.1); SODIUM 137 mmol/L (136-145)
[2020-05-11 14:15] LABS: B-hCG (QUALITATIVE) NEGATIVE (NEGATIVE)
[~2020-05-16] VITALS: Ht 167.6 cm; Wt 167.8 kg
[~2020-05-16] MED LIST changes: +BUDEPRION XL150 MG PO; +LAMOTRIGINE25 M1 PO; +REGLAN5 MG PO
[2020-05-16 07:31] LABS: BASO # 0.1 10*3/uL (0.0-0.1); BASO % 0.6 % (0.0-1.0); EOS # 0.3 10*3/uL (0.0-0.4); HEMATOCRIT 32.5 % (37.0-47.0); LYMPH # 3.7 10*3/uL (1.3-4.4); LYMPH % 26.4 % (27.0-41.0); MEAN CELL VOLUME 81.7 fl (81.0-99.0); MEAN CORPUSCULAR HGB 24.9 pg (27.0-31.0); MEAN CORPUSCULAR HGB CONC 30.5 g/dl (33.0-37.0); MEAN PLATELET VOLUME 9.2 fl (9.6-12.3); MONO % 7.1 % (3.0-9.0); NEUT % 63.1 % (47.0-73.0); PLATELET COUNT AUTOMATED 533 10*3/uL (130-400); RED BLOOD COUNT 3.98 10*6/uL (4.10-5.10); RED CELL DISTRI WIDTH 13.8 % (0-14.5); WHITE BLOOD COUNT 14.2 10*3/uL (4.8-10.8)
[2020-05-16 09:41] VITALS: BP 117/54
== END | disposition home or self-care (01) ==
LOC: SDC 05-11 12:30
PROVIDERS: Podiatrist Foot & Ankle Surgery; ATTEND Podiatrist
DX: Z53.8 Procedure and treatment not carried out for other reasons (principal); F41.9 Anxiety disorder, unspecified; E11.9 Type 2 diabetes mellitus without complications; F32.9 Major depressive disorder, single episode, unspecified; Z79.84 Long term (current) use of oral hypoglycemic drugs; Z79.899 Other long term (current) drug therapy; Z83.3 Family history of diabetes mellitus

== ENCOUNTER → 2020-05-22 | Outpatient (CLI) | payer OTHER ==
[2020-05-22 12:36] LABS: BASO # 0.1 10*3/uL (0.0-0.1); BASO % 0.6 % (0.0-1.0); EOS # 0.3 10*3/uL (0.0-0.4); HEMATOCRIT 32.3 % (37.0-47.0); LYMPH # 3.1 10*3/uL (1.3-4.4); LYMPH % 24.5 % (27.0-41.0); MEAN CELL VOLUME 81.6 fl (81.0-99.0); MEAN CORPUSCULAR HGB 24.7 pg (27.0-31.0); MEAN CORPUSCULAR HGB CONC 30.3 g/dl (33.0-37.0); MEAN PLATELET VOLUME 9.7 fl (9.6-12.3); MONO # 0.8 10*3/uL (0.1-1.0); NEUT # 8.4 10*3/uL (2.3-7.9); NEUT % 66.3 % (47.0-73.0); PLATELET COUNT AUTOMATED 509 10*3/uL (130-400); RED BLOOD COUNT 3.96 10*6/uL (4.10-5.10); RED CELL DISTRI WIDTH 13.9 % (0-14.5); WHITE BLOOD COUNT 12.7 10*3/uL (4.8-10.8)
== END | disposition home or self-care (01) ==
LOC: LAB 11:22
PROVIDERS: ATTEND Family Medicine
DX: L03.90 Cellulitis, unspecified (principal); D72.829 Elevated white blood cell count, unspecified

== ENCOUNTER → 2020-05-25 | Outpatient (CLI) | payer OTHER | END | disposition home or self-care (01) | LOC: COVID19 05:34 | PROVIDERS: ATTEND Podiatrist | DX: Z01.812 Encounter for preprocedural laboratory examination (principal); Z20.828 Contact with and (suspected) exposure to other viral communicable diseases ==

== ENCOUNTER → 2020-05-28 | Outpatient (CLI) | payer OTHER ==
[2020-05-28 12:07] LABS: HEMATOCRIT 33.9 % (37.0-47.0); MEAN CELL VOLUME 81.1 fl (81.0-99.0); MEAN CORPUSCULAR HGB 24.4 pg (27.0-31.0); MEAN CORPUSCULAR HGB CONC 30.1 g/dl (33.0-37.0); MEAN PLATELET VOLUME 9.5 fl (9.6-12.3); RED BLOOD COUNT 4.18 10*6/uL (4.10-5.10); WHITE BLOOD COUNT 14.7 10*3/uL (4.8-10.8)
== END | disposition home or self-care (01) ==
LOC: LAB 11:30
PROVIDERS: ATTEND Family Medicine
DX: D72.829 Elevated white blood cell count, unspecified (principal); L03.90 Cellulitis, unspecified

== ENCOUNTER → 2020-05-29 | Outpatient (CLI) | payer OTHER | END | disposition home or self-care (01) | LOC: RAD 12:45 | PROVIDERS: ATTEND Family Medicine | DX: Z01.818 Encounter for other preprocedural examination (principal); R09.89 Other specified symptoms and signs involving the circulatory and respiratory systems ==

== ENCOUNTER → 2020-05-30 | Day surgery (SDC) | payer OTHER ==
[~2020-05-30] VITALS: Ht 167.6 cm; Wt 158.3 kg
[2020-05-30 08:00] VITALS: BP 127/74
[2020-05-30 12:16] VITALS: BP 141/78
[2020-05-30 12:30] VITALS: BP 144/75
[2020-05-30 12:45] VITALS: BP 140/68
[2020-05-30 13:00] VITALS: BP 136/65
[2020-05-30 13:15] VITALS: BP 137/67
== END ==
LOC: SDC 05-28 11:00
PROVIDERS: ATTEND Podiatrist
DX: M25.371 Other instability, right ankle (principal); E11.9 Type 2 diabetes mellitus without complications; F41.9 Anxiety disorder, unspecified; F32.9 Major depressive disorder, single episode, unspecified; I12.0 Hypertensive chronic kidney disease with stage 5 chronic kidney disease or end stage renal disease; E11.22 Type 2 diabetes mellitus with diabetic chronic kidney disease; N18.6 End stage renal disease; Z99.2 Dependence on renal dialysis; E78.5 Hyperlipidemia, unspecified; E11.40 Type 2 diabetes mellitus with diabetic neuropathy, unspecified; G43.909 Migraine, unspecified, not intractable, without status migrainosus; Z90.49 Acquired absence of other specified parts of digestive tract; Z98.890 Other specified postprocedural states